=== PATIENT | male | born 1945 ===

== ENCOUNTER → 2019-12-27 14:03 | Outpatient (CLI) | payer MEDICARE, SELFPAY ==
--- NOTE | 2019-12-27 14:15 | DI.RAD.S_ITS ---
PROCEDURE: XR THORACIC SPINE 3V INDICATIONS: BACK PAIN TECHNIQUE: 3 views of the thoracic spine were acquired. COMPARISON: None. FINDINGS: Bones: No fractures or dislocations. No suspicious bony lesions. Mild degenerative disc disease, no fracture or subluxation found. pairs of ribs are noted, and appear intact where visualized. Soft tissues: No paravertebral stripe thickening. IMPRESSION: Only mild degenerative disc disease is seen. Dictated by: Abdiel Carver M.D. on 12/27/2019 at 15:19 Approved by: Abdiel Carver M.D. on 12/27/2019 at 15:20
== END ==
PROVIDERS: PCP Orthopaedic Surgery; Referring Provider Orthopaedic Surgery; Visit Provider Orthopaedic Surgery
DX: M54.9 Dorsalgia, unspecified (principal); M79.18 Myalgia, other site; M51.34 Other intervertebral disc degeneration, thoracic region
CPT/HCPCS: 72072

== ENCOUNTER 2020-06-04 12:13 | Emergency (ER) | payer MEDICARE, SELFPAY ==
[2020-06-04] VITALS (15 sets, daily range): BP systolic 124–169; BP diastolic 70–93; PULSE 74–88; RESP 17–25; TEMP 36.8; O2SAT 93–99; BMI 25.1
--- NOTE | 2020-06-04 12:38 | DI.RAD.S_ITS ---
PROCEDURE: XR CHEST 1V INDICATIONS: chest pain TECHNIQUE: One view of the chest was acquired. COMPARISON: None. FINDINGS: Surgical changes and devices: None. Lungs and pleura: Lungs are clear. No pleural effusions or pneumothorax. Mediastinum: Mediastinal contours appear normal. Heart size is normal. Bones and chest wall: No suspicious bony lesions. Overlying soft tissues appear unremarkable. IMPRESSION: Normal for age, source of current chest pain symptoms is not seen. Dictated by: Abdiel Carver M.D. on 06/04/2020 at 13:19 Approved by: Abdiel Carver M.D. on 06/04/2020 at 13:20
[2020-06-04 12:44] LABS: Add Manual Diff / Slide Review NO; Basophils Absolute Auto 0 /uL (0-100); Basophils Percent Auto 0.5 % (0-2); Eosinophils Absolute Auto 0 /uL (0-450); Eosinophils Percent Auto 0.4 % (2-4); Hematocrit 39.4 % (41-53); Hemoglobin 13.3 g/dL (13.5-17.5); Lymphocytes Absolute Auto 1700 /uL (1100-4500); Lymphocytes Percent Auto 22.2 % (25-40); Mean Corpuscular HGB Conc 33.8 % (30-36); Mean Corpuscular Hemoglobin 30.3 PG (26-34); Mean Corpuscular Volume 89.5 fL (80-100); Monocytes Absolute Auto 700 /uL (0-900); Monocytes Percent Auto 8.6 % (3-14); Neutrophils Absolute Auto 5300 /uL (1500-7000); Neutrophils Percent Auto 68.3 % (50-75); Platelet Count 308 X10^3/uL (150-400); Red Cell Distribution Width 13.7 % (11.6-14.8); White Blood Cell Count 7.8 X10^3/uL (4.5-11.0)
[2020-06-04 12:56] LABS: Prothrombin Time 12.1 SECONDS (10.1-12.7)
[2020-06-04 12:59] LABS: Alanine Aminotransferase 21 IU/L (<50); Albumin 4.3 g/dL (3.5-5.0); Albumin Globulin Ratio 1.4 (1.0-2.8); Alkaline Phosphatase 75 U/L (38-126); Aspartate Aminotransferase 24 IU/L (17-59); BUN Creatinine Ratio 16.1 (6-22); Bilirubin Total 0.5 mg/dL (0.2-1.3); Blood Urea Nitrogen 14 mg/dL (9-20); Calcium 9.2 mg/dL (8.4-10.2); Carbon Dioxide 26 mmol/L (22-32); Chloride 102 mmol/L (98-107); Creatine Kinase 164 U/L (55-170); Estimated Glomerular Filt Rate > 60.0 mL/min (>60); Globulin 3.1 g/dL (1.7-4.1); Glucose 155 mg/dL (80-110); HEMOLYSIS < 15 (0-50); Lipase 235 U/L (23-300); PTT Partial Thromboplastin Tim 29 SECONDS (26.4-36.2); Sodium 135 mmol/L (137-145); Total Protein 7.4 g/dL (6.3-8.2)
[2020-06-04 13:11] LABS: Troponin I < 0.012 ng/mL (0.01-0.034)
[2020-06-04 13:15] LABS: CKMB % Relative Index 1.5 % (1.5-5.0); Creatine Kinase MB 2.44 ng/mL (<2.37)
--- NOTE | 2020-06-04 13:22 | ED.CHESTPAIN ---
HPI - Chest Pain <RAFAEL Corcoran - Last Filed: 06/04/20 16:26> General Chief Complaint: Chest Pain Stated Complaint: Having Heart Issues, Palpitaions, Numbness in Hand Time Seen by Provider: 06/04/20 12:39 Source: patient Mode of arrival: Ambulatory Limitations: no limitations History of Present Illness HPI narrative: 74yo male with a history of palpitations (takes a beta pancho), presents to the ED for increased heart palpitations and the development of chest pressure. Patient states on 05/30 (6 days ago), he noticed he was short of breath while he was walking up the driveway, he also had increased heart palpitation where he feels leg every so often he has a double heart beat. Patient states at that point he noticed some 2/10 chest pressure and some ?abnormal feelings in his hands bilaterally. Patient states it is not quite and numbness and tingling but just does not feel right. Patient states the feelings have been ongoing. He saw his primary care provider approximately 2 days ago and was told that he will have a full workup scheduled, he was not told that this involved cardiac stress test. 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 Patient states he is usually quite active, he usually gets on the elliptical for 20 minutes, he was only able to do it for 5 minutes the past few days due to fatigue and shortness of breath. Patient denies any fevers, chills, cough, nausea, vomiting, diarrhea, dizziness, headaches, slurred speech, or any other concerns. Related Data Allergies Allergy/AdvReac Type Severity Reaction Status Date / Time Penicillins Allergy Verified 06/04/20 12:33 Sulfa (Sulfonamide Allergy Verified 06/04/20 12:33 Antibiotics) Review of Systems <RAFAEL Corcoran - Last Filed: 06/04/20 16:26> Review of Systems Narrative: REVIEW OF SYSTEMS: GENERAL: Denies fevers. HENT: No head trauma. CARDIOVASCULAR: Reports palpitations, see HPI. RESPIRATORY: No cough. GASTROINTESTINAL: No nausea or vomiting. MUSCULOSKELETAL: No weakness or injury. INTEGUMENTARY: No rash. Patient History <RAFAEL Corcoran - Last Filed: 06/04/20 16:26> Medical History HTN (hypertension) Social History Smoking Status: Never smoker Smoking Status: Never smoker alcohol intake frequency: a few times a week Alcohol type: wine Substance Use Type: does not use Exam <RAFAEL Corcoran - Last Filed: 06/04/20 16:26> Initial Vital Signs Initial Vital Signs: Vital Signs Temperature 98.2 F 06/04/20 12:34 Pulse Rate 88 06/04/20 12:34 Respiratory Rate 18 06/04/20 12:34 Blood Pressure 169/86 H 06/04/20 12:34 Pulse Oximetry 99 06/04/20 12:34 PHYSICAL EXAMINATION: GENERAL: Awake and alert. HENT: Normocephalic, atraumatic. Ear canals patent. Oral mucosa is pink and moist. EYES: Conjunctiva pink, sclera white, no periorbital swelling. CHEST: Normal to inspection and without deformities. CARDIOVASCULAR: S1 and S2 sounds normal. Regular rate and rhythm, no murmurs, clicks, or bruits. No pedal edema. Occasional PVCs seen on the monitor. RESPIRATORY: Normal respiratory rate, trachea midline, airway patent. No stridor, nasal flaring or accessory muscle use. Lungs are clear in all sellers without wheeze, rhonchi, or crackles. GASTROINTESTINAL: Bowel sounds normoactive. Abdomen is soft and non-tender. No organomegaly. MUSCULOSKELETAL: Normal gait and coordination. Equal tone and mass bilaterally. EXTREMITIES: CMS intact. Moves all extremities. SKIN: Warm, dry, soft, appropriate color for ethnicity. No lesions, rashes, or wounds. NEURO: Alert and Oriented X 3. Good coordination. No ataxia, or sensory deficits, or cognitive issues. PSYCH: Appropriate affect and mood. <Amelia Baptiste DO - Last Filed: 06/05/20 08:04> Initial Vital Signs Initial Vital Signs: Vital Signs Temperature 98.2 F 06/04/20 12:34 Pulse Rate 88 06/04/20 12:34 Respiratory Rate 18 06/04/20 12:34 Blood Pressure 169/86 H 06/04/20 12:34 Pulse Oximetry 99 06/04/20 12:34 Scores <RAFAEL Corcoran - Last Filed: 02/18/21 16:26> HEART Score Heart Score history: Slightly Suspicious Heart Score EKG: Normal Heart Score Age: > or = 65 years old Heart Score risk factors: 1-2 risk factors Heart Score troponin: < or = to normal limit Heart Score Total: 3 Course <Priscila EspinalRAFAEL - Last Filed: 06/04/20 16:26> Course Course Narrative: 1335: Patient states he feels different after the nitro but does not necessarily feel better or worse. 1436: Patient states he is feeling much better, denies any chest pressure. Repeat troponin and EKG ordered. 1546: Patient states he is feeling much better. Discussed indications for stress test and admission verses no patient follow-up with primary care provider. Patient states he would like to go home today. We discussed the importance of close follow-up as well as importance of returning for any new or worsening symptoms. Orders Ordered: Discontinued Medications Aspirin (Aspirin 81 Mg Chew Tab) 324 mg PO NOW ONE Stop: 06/04/20 13:01 Last Admin: 06/04/20 13:35 Dose: 324 mg Documented by: KEVON Sodium Chloride (Normal Saline 0.9%) 1,000 mls @ 1,000 mls/hr IV BOLUS ONE Stop: 06/04/20 15:35 Last Infusion: 06/04/20 15:46 Dose: 0 mls/hr Documented by: Admin: 06/04/20 14:37 Dose: 1,000 mls/hr Documented by: KEVON Nitroglycerin (Nitroglycerin 0.3 Mg Sl Tab) 0.3 mg SL NOW ONE Stop: 06/04/20 13:01 Last Admin: 06/04/20 13:31 Dose: Not Given Documented by: KEVON Nitroglycerin (Nitroglycerin 0.4 Mg Sl Tab) 0.4 mg SL [id number] PRN PRN Reason: Chest Pain Last Admin: 06/04/20 13:35 Dose: 0.4 mg Documented by: EKVON Consultations Consultation #1: Patient staffed with Dr. Baptiste discussed test, test results, plan of care. Vital Signs Vital signs: Vital Signs - 8 hr 06/04/20 12:34 06/04/20 12:52 06/04/20 13:00 Temperature 98.2 F Pulse Rate 88 86 82 Respiratory Rate 18 25 H 23 Blood Pressure 169/86 H Pulse Oximetry 99 97 96 06/04/20 13:30 06/04/20 13:35 06/04/20 13:38 Temperature Pulse Rate 78 76 81 Respiratory Rate 17 21 Blood Pressure 169/86 H 153/93 H Pulse Oximetry 95 96 06/04/20 13:40 06/04/20 13:50 06/04/20 14:00 Temperature Pulse Rate 84 83 78 Respiratory Rate 22 19 17 Blood Pressure 144/77 H 136/74 133/73 Pulse Oximetry 97 93 95 06/04/20 14:10 06/04/20 14:20 06/04/20 14:30 Temperature Pulse Rate 75 77 74 Respiratory Rate 22 25 H 21 Blood Pressure 125/74 124/70 130/75 Pulse Oximetry 95 96 95 06/04/20 14:40 06/04/20 14:50 06/04/20 15:00 Temperature Pulse Rate 75 79 78 Respiratory Rate 21 23 22 Blood Pressure 132/77 129/84 132/84 Pulse Oximetry 97 96 98 <Amelia Baptiste DO - Last Filed: 06/05/20 08:04> Orders Ordered: Discontinued Medications Aspirin (Aspirin 81 Mg Chew Tab) 324 mg PO NOW ONE Stop: 06/04/20 13:01 Last Admin: 06/04/20 13:35 Dose: 324 mg Documented by: KEVON Sodium Chloride (Normal Saline 0.9%) 1,000 mls @ 1,000 mls/hr IV BOLUS ONE Stop: 06/04/20 15:35 Last Infusion: 06/04/20 15:46 Dose: 0 mls/hr Documented by: Admin: 06/04/20 14:37 Dose: 1,000 mls/hr Documented by: KEVON Nitroglycerin (Nitroglycerin 0.3 Mg Sl Tab) 0.3 mg SL NOW ONE Stop: 06/04/20 13:01 Last Admin: 06/04/20 13:31 Dose: Not Given Documented by: KEVON Nitroglycerin (Nitroglycerin 0.4 Mg Sl Tab) 0.4 mg SL [id number] PRN PRN Reason: Chest Pain Last Admin: 06/04/20 13:35 Dose: 0.4 mg Documented by: KEVON Vital Signs Vital signs: Vital Signs - 8 hr 06/04/20 12:34 06/04/20 12:52 06/04/20 13:00 Temperature 98.2 F Pulse Rate 88 86 82 Respiratory Rate 18 25 H 23 Blood Pressure 169/86 H Pulse Oximetry 99 97 96 06/04/20 13:30 06/04/20 13:35 06/04/20 13:38 Temperature Pulse Rate 78 76 81 Respiratory Rate 17 21 Blood Pressure 169/86 H 153/93 H Pulse Oximetry 95 96 06/04/20 13:40 06/04/20 13:50 06/04/20 14:00 Temperature Pulse Rate 84 83 78 Respiratory Rate 22 19 17 Blood Pressure 144/77 H 136/74 133/73 Pulse Oximetry 97 93 95 06/04/20 14:10 06/04/20 14:20 06/04/20 14:30 Temperature Pulse Rate 75 77 74 Respiratory Rate 22 25 H 21 Blood Pressure 125/74 124/70 130/75 Pulse Oximetry 95 96 95 06/04/20 14:40 06/04/20 14:50 06/04/20 15:00 Temperature Pulse Rate 75 79 78 Respiratory Rate 21 23 22 Blood Pressure 132/77 129/84 132/84 Pulse Oximetry 97 96 98 MDM - Chest Pain <RAFAEL Corcoran - Last Filed: 06/04/20 16:26> Medical Records Data Attestation: I reviewed the patient's medical records. Lab Data Attestation: I reviewed the patient's lab results. Result diagrams: 06/04/20 12:35 06/04/20 12:35 Labs: Lab Results 06/04/20 06/04/20 06/04/20 Range/Units 12:35 12:35 12:35 WBC 7.8 (4.5-11.0) X10^3/uL RBC 4.40 L (4.5-5.9) X10^6/uL Hgb 13.3 L (13.5-17.5) g/dL Hct 39.4 L (41-53) % MCV 89.5 (80-100) fL MCH 30.3 (26-34) PG MCHC 33.8 (30-36) % RDW 13.7 (11.6-14.8) % Plt Count 308 (150-400) X10^3/uL Neut % (Auto) 68.3 (50-75) % Lymph % (Auto) 22.2 L (25-40) % Sutter % (Auto) 8.6 (3-14) % Eos % (Auto) 0.4 L (2-4) % Baso % (Auto) 0.5 (0-2) % Neut # (Auto) 5300 (7071-4002) /uL Lymph # (Auto) 1700 (1561-4743) /uL Sutter # (Auto) 700 (0-900) /uL Eos # (Auto) 0 (0-450) /uL Baso # (Auto) 0 (0-100) /uL PT 12.1 (10.1-12.7) SECONDS INR 1.0 (0.9-1.3) APTT 29 (26.4-36.2) SECONDS Sodium 135 L (137-145) mmol/L Potassium 4.0 (3.4-5.1) mmol/L Chloride 102 (98-107) mmol/L Carbon Dioxide 26 (22-32) mmol/L BUN 14 (9-20) mg/dL Creatinine 0.87 (0.66-1.25) mg/dL Estimated GFR > 60.0 (>60) mL/min BUN/Creatinine Ratio 16.1 (6-22) Glucose 155 H (80-110) mg/dL Calcium 9.2 (8.4-10.2) mg/dL Total Bilirubin 0.5 (0.2-1.3) mg/dL AST 24 (17-59) IU/L ALT 21 (<50) IU/L Alkaline Phosphatase 75 (38-126) U/L Total Creatine Kinase 164 (55-170) U/L CK-MB (CK-2) 2.44 H (<2.37) ng/mL CK-MB (CK-2) Rel Index 1.5 (1.5-5.0) % Troponin I < 0.012 (0.01-0.034) ng/mL Total Protein 7.4 (6.3-8.2) g/dL Albumin 4.3 (3.5-5.0) g/dL Globulin 3.1 (1.7-4.1) g/dL Albumin/Globulin Ratio 1.4 (1.0-2.8) Lipase 235 (23-300) U/L 02/18/21 Range/Units 14:39 WBC (4.5-11.0) X10^3/uL RBC (4.5-5.9) X10^6/uL Hgb (13.5-17.5) g/dL Hct (41-53) % MCV (80-100) fL MCH (26-34) PG MCHC (30-36) % RDW (11.6-14.8) % Plt Count (150-400) X10^3/uL Neut % (Auto) (50-75) % Lymph % (Auto) (25-40) % Sutter % (Auto) (3-14) % Eos % (Auto) (2-4) % Baso % (Auto) (0-2) % Neut # (Auto) (4490-3112) /uL Lymph # (Auto) (0527-9078) /uL Sutter # (Auto) (0-900) /uL Eos # (Auto) (0-450) /uL Baso # (Auto) (0-100) /uL PT (10.1-12.7) SECONDS INR (0.9-1.3) APTT (26.4-36.2) SECONDS Sodium (137-145) mmol/L Potassium (3.4-5.1) mmol/L Chloride (98-107) mmol/L Carbon Dioxide (22-32) mmol/L BUN (9-20) mg/dL Creatinine (0.66-1.25) mg/dL Estimated GFR (>60) mL/min BUN/Creatinine Ratio (6-22) Glucose (80-110) mg/dL Calcium (8.4-10.2) mg/dL Total Bilirubin (0.2-1.3) mg/dL AST (17-59) IU/L ALT (<50) IU/L Alkaline Phosphatase (38-126) U/L Total Creatine Kinase (55-170) U/L CK-MB (CK-2) (<2.37) ng/mL CK-MB (CK-2) Rel Index (1.5-5.0) % Troponin I < 0.012 (0.01-0.034) ng/mL Total Protein (6.3-8.2) g/dL Albumin (3.5-5.0) g/dL Globulin (1.7-4.1) g/dL Albumin/Globulin Ratio (1.0-2.8) Lipase (23-300) U/L Imaging Data Chest x-ray: Radiologist's Impression: [address] [id number] ReportSigned Patient: Juanpablo Vo RMR#: [id number]: 6Acct:[id number]/Sex: 74 / MDate of Service: 06/04/20Loc: EDAccession Number: [id number] Procedure: XR chest 1V Ordering Provider: Amelia Baptiste D.O. PROCEDURE: XR CHEST 1V INDICATIONS: chest pain TECHNIQUE: One view of the chest was acquired. COMPARISON: None. FINDINGS: Surgical changes and devices: None. Lungs and pleura: Lungs are clear. No pleural effusions or pneumothorax. Mediastinum: Mediastinal contours appear normal. Heart size is normal. Bones and chest wall: No suspicious bony lesions. Overlying soft tissues appear unremarkable. IMPRESSION: Normal for age, source of current chest pain symptoms is not seen. Dictated by: Abdiel Carver M.D. on 06/04/2020 at 13:19 Approved by: Adbiel Carver M.D. on 06/04/2020 at 13:20 ECG Data Interpretation: 1229: Normal sinus rhythm, rate 85, KS interval 160, QTC 440. No ST elevation or ST depression. T-wave inversion noted in V1. No ectopy. EKG also viewed by Dr. Baptiste. 1455: Sinus rhythm, rate 75, KS interval 163, QTC 408. No ST elevation or ST depression. T-wave inverson noted in V1. No ectopy, EKG also viewed by Dr. Baptiste per protocol. [facility] Narrative Medical decision making narrative: 74-year-old male presents to the emergency department for complaints of increased palpitations over the past week with mild chest pressure and shortness of breath when walking up the driveway. Patient has a heart score 3. Serial troponins were negative, EKG did not show any a diffuse ischemic changes. We discussed given his risk factors, he should have a cardiac stress test and echo to further evaluate for ACS. We discussed that this can be done via admission or outpatient as a heart score 3 can be either admitted or discharged. Patient felt better after evaluation emergency department did not have any chest pain, shortness of breath, or palpitations. Shared decision making was used to the lab patient to be discharged. We discussed the significance importance of calling his primary care provider sedated tomorrow to discuss stress testing and ECHO indications. We discussed risks and benefits about going home, patient was significantly counseled about returns emergency department for any new or worsening symptoms. EKG within normal limits, there was occasional PVCs noted on the monitor however, they were not consistent with his frequent palpitations that he was initially feeling. Nitroglycerin did not affect patient's symptoms. I suspect there may be a component of anxiety with this as well. Patient is currently on metoprolol for his palpitations which he has a history of. He recently seen his PCP yesterday. No concern for infection. No concern for PE given lack of tachycardia or hypoxia, symptoms resolved while in the emergency department, it appears main complaint is most likely palpitations. Return precautions given for new or worsening symptoms. Patient agreed to plan of care verbalized understanding. <Amelia Baptiste, DO - Last Filed: 06/05/20 08:04> Lab Data Labs: Lab Results 06/04/20 06/04/20 06/04/20 Range/Units 12:35 12:35 12:35 WBC 7.8 (4.5-11.0) X10^3/uL RBC 4.40 L (4.5-5.9) X10^6/uL Hgb 13.3 L (13.5-17.5) g/dL Hct 39.4 L (41-53) % MCV 89.5 (80-100) fL MCH 30.3 (26-34) PG MCHC 33.8 (30-36) % RDW 13.7 (11.6-14.8) % Plt Count 308 (150-400) X10^3/uL Neut % (Auto) 68.3 (50-75) % Lymph % (Auto) 22.2 L (25-40) % Sutter % (Auto) 8.6 (3-14) % Eos % (Auto) 0.4 L (2-4) % Baso % (Auto) 0.5 (0-2) % Neut # (Auto) 5300 (1991-6815) /uL Lymph # (Auto) 1700 (3584-5719) /uL Sutter # (Auto) 700 (0-900) /uL Eos # (Auto) 0 (0-450) /uL Baso # (Auto) 0 (0-100) /uL PT 12.1 (10.1-12.7) SECONDS INR 1.0 (0.9-1.3) APTT 29 (26.4-36.2) SECONDS Sodium 135 L (137-145) mmol/L Potassium 4.0 (3.4-5.1) mmol/L Chloride 102 (98-107) mmol/L Carbon Dioxide 26 (22-32) mmol/L BUN 14 (9-20) mg/dL Creatinine 0.87 (0.66-1.25) mg/dL Estimated GFR > 60.0 (>60) mL/min BUN/Creatinine Ratio 16.1 (6-22) Glucose 155 H (80-110) mg/dL Calcium 9.2 (8.4-10.2) mg/dL Total Bilirubin 0.5 (0.2-1.3) mg/dL AST 24 (17-59) IU/L ALT 21 (<50) IU/L Alkaline Phosphatase 75 (38-126) U/L Total Creatine Kinase 164 (55-170) U/L CK-MB (CK-2) 2.44 H (<2.37) ng/mL CK-MB (CK-2) Rel Index 1.5 (1.5-5.0) % Troponin I < 0.012 (0.01-0.034) ng/mL Total Protein 7.4 (6.3-8.2) g/dL Albumin 4.3 (3.5-5.0) g/dL Globulin 3.1 (1.7-4.1) g/dL Albumin/Globulin Ratio 1.4 (1.0-2.8) Lipase 235 (23-300) U/L 06/04/20 Range/Units 14:39 WBC (4.5-11.0) X10^3/uL RBC (4.5-5.9) X10^6/uL Hgb (13.5-17.5) g/dL Hct (41-53) % MCV (80-100) fL MCH (26-34) PG MCHC (30-36) % RDW (11.6-14.8) % Plt Count (150-400) X10^3/uL Neut % (Auto) (50-75) % Lymph % (Auto) (25-40) % Sutter % (Auto) (3-14) % Eos % (Auto) (2-4) % Baso % (Auto) (0-2) % Neut # (Auto) (1491-9676) /uL Lymph # (Auto) (0115-5611) /uL Sutter # (Auto) (0-900) /uL Eos # (Auto) (0-450) /uL Baso # (Auto) (0-100) /uL PT (10.1-12.7) SECONDS INR (0.9-1.3) APTT (26.4-36.2) SECONDS Sodium (137-145) mmol/L Potassium (3.4-5.1) mmol/L Chloride (98-107) mmol/L Carbon Dioxide (22-32) mmol/L BUN (9-20) mg/dL Creatinine (0.66-1.25) mg/dL Estimated GFR (>60) mL/min BUN/Creatinine Ratio (6-22) Glucose (80-110) mg/dL Calcium (8.4-10.2) mg/dL Total Bilirubin (0.2-1.3) mg/dL AST (17-59) IU/L ALT (<50) IU/L Alkaline Phosphatase (38-126) U/L Total Creatine Kinase (55-170) U/L CK-MB (CK-2) (<2.37) ng/mL CK-MB (CK-2) Rel Index (1.5-5.0) % Troponin I < 0.012 (0.01-0.034) ng/mL Total Protein (6.3-8.2) g/dL Albumin (3.5-5.0) g/dL Globulin (1.7-4.1) g/dL Albumin/Globulin Ratio (1.0-2.8) Lipase (23-300) U/L Discharge Plan Departure Patient Disposition: Home Clinical Impression: Heart palpitations Chest pain Qualifiers: Chest pain type: unspecified Qualified Code(s): R07.9 - Chest pain, unspecified Instructions: DI for Chest Pain Activity Restrictions/Additional Instructions: Thank you for entrusting me with your care today. As discussed, your laboratory work, serial EKGs, and chest x-ray are non-remarkable. We discussed admission versus discharge today, I do recommend following up with your primary care provider. Please give them a call today or tomorrow to discuss the indications for stress test. Let them know that you have been seen in the emergency department for chest pain and palpitations. Return emergency department for any new or worsening symptoms especially chest pain, shortness of breath, syncope, or any other concerns. Referrals: Aaron Parsons MD [Primary Care Provider] - <Amelia Baptiste DO - Last Filed: 06/05/20 08:04> Cosign ED Attending Nas[place]ure Attestation: I was immediately available in the department for consultation. Documentation has been reviewed. I agree with assessment and plan.
[2020-06-04] MEDS: NITROGLYCERIN 0.4 MG SL TAB SL (13:35)
[2020-06-04] MEDS: ASPIRIN 81 MG CHEW TAB 324 MG PO (13:35)
[2020-06-04] MEDS: SODIUM CHLORIDE 0.9% 1,000 ML 1000 ML IV (14:37)
[2020-06-04 15:14] LABS: Troponin I < 0.012 ng/mL (0.01-0.034)
== END 2020-06-04 15:46 | disposition home or self-care (01) ==
PROVIDERS: Emergency Medicine; Emergency Provider Nurse Practitioner; PCP Orthopaedic Surgery
DX: R00.2 Palpitations (principal); R07.9 Chest pain, unspecified; R06.02 Shortness of breath
CPT/HCPCS: 36415; 71045; 80053; 82550; 82553; 83690; 84484; 85025; 85610; 85730; 93005; 93010; 96360; 99281; 99284

== ENCOUNTER → 2020-08-31 07:16 | Outpatient (CLI) | payer MEDICARE, SELFPAY ==
[2020-08-31 08:36] LABS: Add Manual Diff / Slide Review NO; Basophils Absolute Auto 100 /uL (0-100); Eosinophils Absolute Auto 100 /uL (0-450); Eosinophils Percent Auto 2.3 % (2-4); Hematocrit 40.7 % (41-53); Hemoglobin 13.6 g/dL (13.5-17.5); Lymphocytes Absolute Auto 1900 /uL (1100-4500); Lymphocytes Percent Auto 31.4 % (25-40); Mean Corpuscular HGB Conc 33.4 % (30-36); Mean Corpuscular Hemoglobin 29.5 PG (26-34); Mean Corpuscular Volume 88.2 fL (80-100); Monocytes Absolute Auto 500 /uL (0-900); Monocytes Percent Auto 8.8 % (3-14); Neutrophils Absolute Auto 3400 /uL (1500-7000); Neutrophils Percent Auto 56.5 % (50-75); Platelet Count 277 X10^3/uL (150-400); Red Blood Cell Count 4.61 X10^6/uL (4.5-5.9); Red Cell Distribution Width 13.7 % (11.6-14.8)
[2020-08-31 08:49] LABS: Hemoglobin A1C% w Est Avg Glu 7.6 % (4.0-6.0)
[2020-08-31 08:51] LABS: Alanine Aminotransferase 29 IU/L (<50); Albumin 3.9 g/dL (3.5-5.0); Albumin Globulin Ratio 1.3 (1.0-2.8); Alkaline Phosphatase 63 U/L (38-126); Aspartate Aminotransferase 29 IU/L (17-59); BUN Creatinine Ratio 21.1 (6-22); Bilirubin Total 0.2 mg/dL (0.2-1.3); Blood Urea Nitrogen 19 mg/dL (9-20); Carbon Dioxide 27 mmol/L (22-32); Chloride 103 mmol/L (98-107); Cholesterol 134 mg/dL (140-199); Estimated Glomerular Filt Rate > 60.0 mL/min (>60); Glucose 126 mg/dL (80-110); HDL Cholesterol 54 mg/dL (40-60); HEMOLYSIS < 15 (0-50); LDL Cholesterol Calculated 64 mg/dL (<100); Potassium 4.1 mmol/L (3.4-5.1); Sodium 136 mmol/L (137-145); Total Protein 6.9 g/dL (6.3-8.2); Triglycerides 82 mg/dL (35-150)
[2020-08-31 09:21] LABS: Prostate Specific Antigen Scrn < 0.064 ng/mL (0.1-4.0)
[2020-08-31 09:24] LABS: Creatinine Urine Random 131.1 mg/dL
[2020-08-31 09:50] LABS: TSH w/ Reflex to FT4 2.05 uIU/mL (0.47-4.68)
== END ==
PROVIDERS: PCP Family Medicine; Referring Provider Family Medicine; Visit Provider Family Medicine
DX: C61 Malignant neoplasm of prostate (principal); E11.9 Type 2 diabetes mellitus without complications; Z12.5 Encounter for screening for malignant neoplasm of prostate; R00.2 Palpitations; E03.9 Hypothyroidism, unspecified; E78.5 Hyperlipidemia, unspecified; R07.89 Other chest pain
CPT/HCPCS: 36415; 80053; 80061; 82043; 82570; 83036; 84443; 85025; G0103

== ENCOUNTER → 2020-11-19 09:01 | Outpatient (CLI) | payer MEDICARE, SELFPAY ==
[2020-11-19 11:12] LABS: COVID19 -Nasal RAPID Negative (Negative)
== END ==
PROVIDERS: PCP Family Medicine; Visit Provider Specialist
DX: Z20.822 Contact with and (suspected) exposure to COVID-19 (principal)
CPT/HCPCS: 87635; C9803

== ENCOUNTER 2020-11-20 07:30 | Day surgery (SDC) | payer MEDICARE, SELFPAY ==
[2020-11-20 07:52] VITALS: BMI 25.1
[2020-11-20 08:03] VITALS: BP 159/90; PULSE 92; RESP 16; TEMP 37.2; O2SAT 98
[2020-11-20] MEDS: LACTATED RINGERS 1,000 ML 200 ML IV (08:06)
--- NOTE | 2020-11-20 08:28 | PM.HP.1 ---
History of Present Illness History of Present Illness Chief [place] [facility] [place]: The patient is a gentleman his last colonoscopy was over 15 years ago. He is here for screening exam. His grandmother had colon cancer. He has never had any polyps is not seen any blood Patient History Medical History Allergies Chest discomfort Chicken pox (~1951) Diabetes mellitus Fractures Gout Graves disease (~1987) History of elevated PSA (~2003) HTN (hypertension) Hyperlipidemia Hypertension Hypothyroidism (~1987) Measles (~1952) Mumps (~1951) Palpitations Prostate cancer (~2003) Tinnitus (~1986) Surgical History Anesthesia History of prostatectomy (~2003) History of thyroidectomy (~2000) Tibia/fibula fracture (~11/1969) Family & Social History Family History Father History of heart disease Mother C. difficile colitis Grandmother Cancer Grandfather History of heart disease Grandmother History of heart disease Social History: household members spouse Tobacco & Substance use: Smoking Status Never smoker alcohol intake current alcohol intake frequency a few times a month Substance Use Type does not use Meds Home Medications and Allergies Home Medications Medication Instructions Recorded Confirmed Type aspirin 81 mg tablet,delayed 81 mg PO DAILY 08/21/20 11/20/20 History release (Adult Low Dose Aspirin) lancets #100 ea 08/21/20 09/09/20 History levothyroxine 125 mcg capsule 125 mcg PO DAILY 08/21/20 11/20/20 History metformin 1,000 mg tablet 1,000 mg PO BID 08/21/20 11/20/20 History metoprolol succinate 25 mg 25 mg PO DAILY 08/21/20 11/20/20 History tablet,extended release 24 hr rosuvastatin 20 mg tablet 20 mg PO DAILY 08/21/20 11/20/20 History lisinopril 30 mg tablet 30 mg PO DAILY #90 tab 09/09/20 11/20/20 Rx insulin glargine 100 30 unit SUBCUT QAM 11/20/20 11/20/20 History unit-lixisenatide 33 mcg/mL subcutaneous pen (Soliqua 100/33) Allergies Allergy/AdvReac Type Severity Reaction Status Date / Time melon Allergy Anaphylaxis Verified 11/20/20 07:48 Penicillins Allergy Rash Verified 11/20/20 07:48 Sulfa (Sulfonamide Allergy Rash Verified 11/20/20 07:48 Antibiotics) Review of Systems Review of Systems Narrative: No cough cold or asthma. No heart problems or chest pain. No black or bloody bowel movements. No seizures or blackouts. Exam Vital Signs (past 8 hours): - 11/20/20 08:03 Temperature 98.9 F Pulse Rate 92 H Respiratory Rate 16 Blood Pressure 159/90 H Pulse Oximetry 98 Oxygen Delivery Method Room Air Narrative Exam Narrative: Pleasant cooperative patient no apparent distress. Lungs are clear to auscultation. No rales or rhonchi. Heart regular rate and rhythm no murmur gallop. Abdomen is soft nontender without mass. No obvious hernias. Patient is alert and oriented x3. Assessment & Plan Assessment and plan (1) Screening for colon cancer: Status: Acute Assessment & Plan narrative: I have discussed the procedure and the rationale with the patient including risks of bleeding, perforation which would necessitate a major operation, failure to find remove all lesions and the potential to tattoo. They appeared to understand and wished to proceed.
--- NOTE | 2020-11-20 08:35 | PM.PREOP ---
Pre-operative Note COVID-19 COVID-19 status: Negative Result date/Date tested (Pos, Neg/Pending): 11/19/20 Interval Note History & Physical reviewed/Exam performed by Physician: Yes Changes to H&P: No ASA Class (for procedural sedation): III
[2020-11-20] MEDS: MIDAZOLAM 5 MG/5 ML VIAL IV (08:50)
[2020-11-20] MEDS: fentaNYL 250 MCG/5 ML INJ IV (08:50)
[2020-11-20 09:00] VITALS: BP 125/75; PULSE 85; RESP 16; TEMP 37.2; O2SAT 94
[2020-11-20 09:05] VITALS: BP 127/72; PULSE 86; RESP 20; O2SAT 94
[2020-11-20 09:10] VITALS: BP 136/71; PULSE 87; RESP 14; O2SAT 95
--- NOTE | 2020-11-20 09:10 | PM.OP.ENDO ---
Operative Date/Time/Diagnoses Date of procedure: 11/20/20 Time of procedure: 09:10 Pre-op diagnosis: Screening for colon cancer. Last exam about 15 years ago. Post-op diagnosis: same Procedure & Clinicians Study performed: Colonoscopy Same procedure as scheduled: Yes Indications: Screening Surgeon: Yoni Easley Procedure Notes SCOAP/Timeout: Performed Procedure in detail: The patient was placed in the left lateral decubitus position and underwent IV sedation directed by the surgeon consisting of fentanyl and Versed. Digital exam was unremarkable. I did not feel is prostate well.. The scope was inserted and advanced through the rectum into the sigmoid, descending, transverse, and ascending colon. Sigmoid diverticulosis was noted.. The cecum was reached identified by the ileocecal valve and the appendiceal opening. . The scope was gradually brought out. No Polyps were found. The scope ultimately was retroflexed in the rectum. The appearance was normal. The scope was removed and the patient tolerated the procedure well. Prep was good. Scope withdrawal time: 7 minutes Sedation minutes: 22 Findings: diverticulosis (Sigmoid) Specimen(s): none sent Complications: none Post-procedure Recommendations: Colonscopy in 10 years (If in good health)
[2020-11-20 09:15] VITALS: BP 133/76; PULSE 83; RESP 16; TEMP 36.7; O2SAT 94
[2020-11-20 09:20] VITALS: BP 139/77; PULSE 87; RESP 12; TEMP 36.6; O2SAT 95
== END 2020-11-20 09:30 | disposition home or self-care (01) ==
PROVIDERS: PCP Family Medicine; Referring Provider Specialist; Visit Provider Specialist
PROC: 0DJD8ZZ Inspection of Lower Intestinal Tract, Via Natural or Artificial Opening Endoscopic (ICD-10-PCS; CPT 45378; principal; 2020-11-20 08:30)
DX: Z12.11 Encounter for screening for malignant neoplasm of colon (principal); K57.30 Diverticulosis of large intestine without perforation or abscess without bleeding
CPT/HCPCS: G0121; 99152; J2250; J3010

== ENCOUNTER → 2020-11-22 11:58 | Outpatient (CLI) | payer MEDICARE, SELFPAY ==
[2020-11-22 12:53] LABS: COVID19 -Nasal RAPID Negative (Negative)
== END ==
PROVIDERS: PCP Family Medicine; Visit Provider Nurse Practitioner
DX: J02.9 Acute pharyngitis, unspecified (principal); R05 Cough; R09.81 Nasal congestion; Z20.822 Contact with and (suspected) exposure to COVID-19
CPT/HCPCS: 87635

== ENCOUNTER 2020-12-25 12:47 | Emergency (ER) | payer MEDICARE, SELFPAY ==
[2020-12-25] VITALS (8 sets, daily range): BP systolic 161–205; BP diastolic 83–105; PULSE 72–84; RESP 16–29; TEMP 37.1; O2SAT 95–98
--- NOTE | 2020-12-25 12:58 | DI.RAD.S_ITS ---
PROCEDURE: XR CHEST 1V INDICATIONS: chest pain TECHNIQUE: One view of the chest was acquired. COMPARISON: [facility], CR, XR CHEST 1V, 06/04/2020, 13:02. FINDINGS: Surgical changes and devices: None. Lungs and pleura: Lungs are clear. No pleural effusions or pneumothorax. Unchanged right hemidiaphragm elevation. Mediastinum: Mediastinal contours appear normal. Heart size is enlarged. Bones and chest wall: No suspicious bony lesions. Overlying soft tissues appear unremarkable. IMPRESSION: No acute pulmonary process. Dictated by: Marina Gonzalez M.D. on 12/25/2020 at 13:16 Approved by: Marina Gonzalez M.D. on 12/25/2020 at 13:16
[2020-12-25 13:10] LABS: Add Manual Diff / Slide Review NO; Basophils Absolute Auto 0 /uL (0-100); Basophils Percent Auto 0.4 % (0-2); Eosinophils Absolute Auto 300 /uL (0-450); Eosinophils Percent Auto 3.9 % (2-4); Hemoglobin 14.3 g/dL (13.5-17.5); Lymphocytes Absolute Auto 2600 /uL (1100-4500); Lymphocytes Percent Auto 29.9 % (25-40); Mean Corpuscular HGB Conc 33.3 % (30-36); Mean Corpuscular Hemoglobin 29.9 PG (26-34); Monocytes Absolute Auto 700 /uL (0-900); Monocytes Percent Auto 7.8 % (3-14); Neutrophils Absolute Auto 5100 /uL (1500-7000); Platelet Count 299 X10^3/uL (150-400); Red Blood Cell Count 4.78 X10^6/uL (4.5-5.9); Red Cell Distribution Width 15.3 % (11.6-14.8); White Blood Cell Count 8.8 X10^3/uL (4.5-11.0)
[2020-12-25 13:24] LABS: Alanine Aminotransferase 24 IU/L (<50); Albumin 4.4 g/dL (3.5-5.0); Albumin Globulin Ratio 1.5 (1.0-2.8); Alkaline Phosphatase 64 U/L (38-126); Aspartate Aminotransferase 33 IU/L (17-59); BUN Creatinine Ratio 17.5 (6-22); Bilirubin Total 0.5 mg/dL (0.2-1.3); Blood Urea Nitrogen 14 mg/dL (9-20); Calcium 9.2 mg/dL (8.4-10.2); Carbon Dioxide 23 mmol/L (22-32); Chloride 105 mmol/L (98-107); Creatine Kinase 120 U/L (55-170); Estimated Glomerular Filt Rate > 60.0 mL/min (>60); Glucose 116 mg/dL (80-110); HEMOLYSIS 27 (0-50); Lipase 154 U/L (23-300); Magnesium 1.8 mg/dL (1.6-2.3); Sodium 136 mmol/L (137-145); Total Protein 7.4 g/dL (6.3-8.2)
[2020-12-25 13:35] LABS: Troponin I < 0.012 ng/mL (0.01-0.034)
[2020-12-25 13:39] LABS: CKMB % Relative Index 1.9 % (1.5-5.0)
--- NOTE | 2020-12-25 13:47 | ED.ARRPALP ---
HPI - Arrhythmia/Palpitations General Chief Complaint: Arrhythmia/Palpitations Stated Complaint: Heart Issues, Flutters, Pressure,Weakness Time Seen by Provider: 12/25/20 13:29 Source: patient Mode of arrival: Ambulatory Limitations: no limitations History of Present Illness HPI narrative: Patient is a 75-year-old male. History of ?prediabetes and hypertension. He states that approximately 10 years ago he had episodes of palpitations. He did wear a Holter monitor but does not remember anything specific coming from that. He was started on metoprolol. Has been on metoprolol on a daily basis since that time. Has not had any specific issues until a couple weeks ago where he started to have episodes of palpitations and they became more prevalent over the past 2-3 days. He has no chest pain with them. Does become somewhat lightheaded when it happens. It does happen multiple times a day. He has not passed out. States the symptoms last several minutes when they do come on. His last episode was this morning. Has had no change to his medications recently. He is also feeling very shaky and also having weakness. Related Data Home Medications Medication Instructions Recorded Confirmed aspirin 81 mg tablet,delayed 81 mg PO DAILY 08/21/20 11/22/20 release (Adult Low Dose Aspirin) lancets #100 ea 08/21/20 11/22/20 levothyroxine 125 mcg capsule 125 mcg PO DAILY 08/21/20 11/22/20 metformin 1,000 mg tablet 1,000 mg PO BID 08/21/20 11/22/20 metoprolol succinate 25 mg 25 mg PO DAILY 08/21/20 11/22/20 tablet,extended release 24 hr rosuvastatin 20 mg tablet 20 mg PO DAILY 08/21/20 11/22/20 insulin glargine 100 30 unit SUBCUT QAM 11/20/20 11/22/20 unit-lixisenatide 33 mcg/mL subcutaneous pen (Soliqua 100/33) Previous Rx's Medication Instructions Recorded lisinopril 30 mg tablet 30 mg PO DAILY #90 tab 09/09/20 albuterol sulfate 90 mcg/actuation 2 puff INHALATION Q4-6H PRN #6.7 g 11/22/20 aerosol inhaler benzonatate 100 mg capsule 100 mg PO BID-TID PRN #20 cap 11/22/20 (Jaime Arenas) inhalational spacing device (Nabil #1 ea 11/22/20 Aerosol [place] Enhancer) Allergies Allergy/AdvReac Type Severity Reaction Status Date / Time melon Allergy Anaphylaxis Verified 12/25/20 12:57 Penicillins Allergy Rash Verified 12/25/20 12:57 Sulfa (Sulfonamide Allergy Rash Verified 12/25/20 12:57 Antibiotics) Review of Systems Constitutional Constitutional: Denies fever(s) and Denies headache(s) ENT Ears, Nose, Mouth, and Throat: Denies headache(s) Cardiovascular Cardiovascular: Reports as per HPI Respiratory Respiratory: Reports as per HPI Gastrointestinal Gastrointestinal: Reports system reviewed and no additional complaints, except as documented Genitourinary Genitourinary: Reports system reviewed and no additional complaints, except as documented Musculoskeletal Musculoskeletal: Reports system reviewed and no additional complaints, except as documented Integumentary/Breasts Skin/Breast: Reports system reviewed and no additional complaints, except as documented Neurologic Neurologic: Denies headache(s) Endocrine Endocrine: Reports system reviewed and no additional complaints, except as documented Hematologic/Lymphatic On Anticoagulants: No Allergic/Immunologic Allergic/Immunologic: Reports system reviewed and no additional complaints, except as documented Patient History Medical History Allergies Chest discomfort Chicken pox (~1951) Diabetes mellitus Fractures Gout Graves disease (~1987) History of elevated PSA (~2003) HTN (hypertension) Hyperlipidemia Hypertension Hypothyroidism (~1987) Measles (~1952) Mumps (~1951) Palpitations Prostate cancer (~2003) Tinnitus (~1986) Surgical History Anesthesia History of prostatectomy (~2003) History of thyroidectomy (~2000) Tibia/fibula fracture (~11/1969) Family History Father History of heart disease Mother C. difficile colitis Grandmother Cancer Grandfather History of heart disease Grandmother History of heart disease Social History household members: spouse Smoking Status: Never smoker alcohol intake: current Smoking Status: Never smoker alcohol intake frequency: a few times a month Alcohol type: wine Substance Use Type: does not use Exam Initial Vital Signs Initial Vital Signs: Vital Signs Temperature 98.8 F 12/25/20 12:50 Pulse Rate 82 12/25/20 12:50 Respiratory Rate 16 12/25/20 12:50 Blood Pressure 191/93 H 12/25/20 12:50 Pulse Oximetry 98 12/25/20 12:50 Const General: cooperative, comfortable and well developed [facility] Head: normal to inspection and normocephalic Eyes General: appearance normal, both eyes and all related structures Pupils: PERRL Resp Effort & Inspection: normal respiratory effort Auscultation: clear to auscultation bilaterally Cardio Rate: regular rate Rhythm: regular rhythm GI Inspection: normal to inspection Palpation: soft Skin General: no rashes or lesions noted Neuro General: patient alert, patient awake, patient oriented x3 and moves all extremities Extrem General: normal to inspection and capillary refill normal Psych Appearance: grossly normal and well kempt Course Orders Ordered: ED Orders 12/25/20 12:58 XR chest 1V Stat EKG-12 Lead Stat 12/25/20 13:00 Complete Blood Count AUTO DIFF Stat Comprehensive Metabolic Panel Stat Lipase Stat Magnesium Stat TSH w/ Reflex to FT4 Stat Troponin & CK Cardiac Panel Stat Vital Signs Vital signs: Vital Signs - 8 hr 12/25/20 12:50 12/25/20 12:53 12/25/20 12:54 Temperature 98.8 F Pulse Rate 82 84 80 Respiratory Rate 16 21 23 Blood Pressure 191/93 H 194/93 H Pulse Oximetry 98 98 98 12/25/20 13:00 12/25/20 13:27 12/25/20 13:30 Temperature Pulse Rate 81 72 77 Respiratory Rate 29 H 27 H 19 Blood Pressure 205/105 H 178/91 H 183/101 H Pulse Oximetry 98 98 98 12/25/20 14:00 12/25/20 14:30 Temperature Pulse Rate 72 74 Respiratory Rate 18 25 H Blood Pressure 161/83 H 178/90 H Pulse Oximetry 96 95 MDM - Arrhythmia/Palpitations Lab Data Attestation: I reviewed the patient's lab results. Result diagrams: 12/25/20 13:00 12/25/20 13:00 Labs: Lab Results 12/25/20 12/25/20 12/25/20 Range/Units 13:00 13:00 13:00 WBC 8.8 (4.5-11.0) X10^3/uL RBC 4.78 (4.5-5.9) X10^6/uL Hgb 14.3 (13.5-17.5) g/dL Hct 43.0 (41-53) % MCV 90.0 (80-100) fL MCH 29.9 (26-34) PG MCHC 33.3 (30-36) % RDW 15.3 H (11.6-14.8) % Plt Count 299 (150-400) X10^3/uL Neut % (Auto) 58.0 (50-75) % Lymph % (Auto) 29.9 (25-40) % Gila % (Auto) 7.8 (3-14) % Eos % (Auto) 3.9 (2-4) % Baso % (Auto) 0.4 (0-2) % Neut # (Auto) 5100 (5982-6197) /uL Lymph # (Auto) 2600 (3120-5734) /uL Gila # (Auto) 700 (0-900) /uL Eos # (Auto) 300 (0-450) /uL Baso # (Auto) 0 (0-100) /uL Sodium 136 L (137-145) mmol/L Potassium 4.0 (3.4-5.1) mmol/L Chloride 105 (98-107) mmol/L Carbon Dioxide 23 (22-32) mmol/L BUN 14 (9-20) mg/dL Creatinine 0.80 (0.66-1.25) mg/dL Estimated GFR > 60.0 (>60) mL/min BUN/Creatinine Ratio 17.5 (6-22) Glucose 116 H (80-110) mg/dL Calcium 9.2 (8.4-10.2) mg/dL Magnesium 1.8 (1.6-2.3) mg/dL Total Bilirubin 0.5 (0.2-1.3) mg/dL AST 33 (17-59) IU/L ALT 24 (<50) IU/L Alkaline Phosphatase 64 (38-126) U/L Total Creatine Kinase 120 (55-170) U/L CK-MB (CK-2) 2.30 (<2.37) ng/mL CK-MB (CK-2) Rel Index 1.9 (1.5-5.0) % Troponin I < 0.012 (0.01-0.034) ng/mL Total Protein 7.4 (6.3-8.2) g/dL Albumin 4.4 (3.5-5.0) g/dL Globulin 3.0 (1.7-4.1) g/dL Albumin/Globulin Ratio 1.5 (1.0-2.8) Lipase 154 (23-300) U/L TSH 1.70 (0.47-4.68) uIU/mL Imaging Data Chest x-ray: Radiologist's Impresson: [address] [address] XRay Report Signed Patient: Juanpablo Vo MR#: [id number] : 1945 Acct:[id number] Age/Sex: 75 / M Date of Service: 12/25/20 Loc: ED Accession Number: [id number] ?? Procedure: XR chest 1V Ordering Provider: Aaron Rico D.O. PROCEDURE:? XR CHEST 1V ? INDICATIONS:? chest pain ? TECHNIQUE:? One view of the chest was acquired.? ? COMPARISON:? [facility], CR, XR CHEST 1V, 06/04/2020, 13:02. ? FINDINGS:? ? Surgical changes and devices:? None.? ? Lungs and pleura:? Lungs are clear.? No pleural effusions or pneumothorax.? Unchanged right hemidiaphragm elevation. ? Mediastinum:? Mediastinal contours appear normal.? Heart size is enlarged. ? Bones and chest wall:? No suspicious bony lesions.? Overlying soft tissues appear unremarkable.? ? IMPRESSION:? No acute pulmonary process. ? ? Dictated by: Marina Gonzalze M.D. on 12/25/2020 at 13:16 ? ? Approved by: Marina Gonzalez M.D. on 12/25/2020 at 13:16? ECG Data Attestation: I personally reviewed and interpreted this ECG as follows: Interpretation: Sinus rhythm Ventricular rate of 69 Normal axis Normal QRS Normal QTC No ST T wave changes MDM Narrative Medical decision making narrative: Patient has been asymptomatic since arrival here in the emergency department. When he describes today are palpitations. He is on metoprolol. His electrolytes and thyroid testing is unremarkable. His EKG is unremarkable. Chest x-ray is unremarkable. I did discuss with him the lack of a definitive diagnosis. Did tell him that he does need further workup to include a Holter monitor and discussion about echocardiogram/stress testing. Informed that he can get this scheduled through his primary doctor. Plan will be is to increase his metoprolol from 1 tablet a day to 1.5 tablets a day. We did discuss strict return precautions and follow-up instructions. He expressed understanding and agreement. Discharge Plan Departure Patient Disposition: Home Clinical Impression: Palpitations Instructions: Arrhythmias Activity Restrictions/Additional Instructions: I recommend that you increase your metoprolol from 1 tablet today to 1.5 tablets on a daily basis. I also recommend you contact your primary doctor's your most likely need further workup to include a Holter monitor and discussion about a stress test and echocardiogram. Return to the emergency department for any new or worsening symptoms Prescriptions: No Action albuterol sulfate 90 mcg/actuation HFA aerosol inhaler 2 puff inhalation Q4-6H PRN (Reason: shortness of breath or wheezing) Qty: 6.7 RF: 0 (DME) Nabil Aerosol [place] Enhancer Spacer See Rx Instructions .Route Qty: 1 RF: 0 benzonatate [Tessalon Perles] 100 mg capsule 100 mg PO BID-TID PRN (Reason: cough) Qty: 20 RF: 0 levothyroxine 125 mcg capsule 125 mcg PO DAILY RF: 0 metoprolol succinate 25 mg tablet extended release 24 hr 25 mg PO DAILY RF: 0 metformin 1,000 mg tablet 1,000 mg PO BID RF: 0 rosuvastatin 20 mg tablet 20 mg PO DAILY RF: 0 (DME) lancets Misc See Rx Instructions .ROUTE .MEDSUPPLY Qty: 100 RF: 0 aspirin [Adult Low Dose Aspirin] 81 mg tablet,delayed release (DR/EC) 81 mg PO DAILY RF: 0 lisinopril 30 mg tablet 30 mg PO DAILY Qty: 90 RF: 2 Soliqua 100/33 100 unit-33 mcg/mL Insulin Pen 30 unit SUBCUT QAM RF: 0 Referrals: Homer Xavier MD [Primary Care Provider] -
== END 2020-12-25 14:48 | disposition home or self-care (01) ==
PROVIDERS: Emergency Provider Emergency Medicine; PCP Family Medicine
DX: R00.2 Palpitations (principal); R07.9 Chest pain, unspecified
CPT/HCPCS: 36415; 71045; 80053; 82550; 82553; 83690; 83735; 84443; 84484; 85025; 93005; 99283; 99284

== ENCOUNTER → 2021-01-14 09:44 | Outpatient (CLI) | payer MEDICARE, SELFPAY ==
--- NOTE | 2021-01-28 08:36 | PM.CARDMON.1 ---
Audio Visual Aids Director Report Referral & Results Date Patient Seen: 01/14/21 Requesting provider: Homer Xavier Indication: Palpitations Duration of monitoring (days): 8 Diary information: There were 6 patient triggered events and 5 patient diary entries Patient triggered events were associated with (within 45 seconds) sinus rhythm and PVCs Patient diary events were associated with (within 45 seconds) sinus rhythm and PACs Data: Minimum heart rate identified was 55 beats per minute at 23:11 on 01/21/2021 Maximum heart rate was 130 beats per minute at 11:38 on 01/16/2021 Less than 1% of identified beats were ventricular or supraventricular ectopic in origin, which would classify them as rare. No other significant dysrhythmias identified Impression: 8+ day quality assurance monitor body demonstrating rare PACs and PVCs. Based on patient events there is no clear correlation between patient reported events and anyone particular dysrhythmia. Clinical correlation suggested
== END ==
PROVIDERS: PCP Family Medicine; Referring Provider Family Medicine; Visit Provider Family Medicine
DX: R00.2 Palpitations (principal)
CPT/HCPCS: 93242; 93244

== ENCOUNTER → 2021-02-02 12:16 | Outpatient (CLI) | payer MEDICARE, SELFPAY ==
[2021-02-02 13:02] LABS: Hemoglobin A1C% w Est Avg Glu 6.9 % (4.0-6.0)
== END ==
PROVIDERS: PCP Family Medicine; Referring Provider Family Medicine; Visit Provider Family Medicine
DX: E11.9 Type 2 diabetes mellitus without complications (principal); I10 Essential (primary) hypertension; R00.2 Palpitations
CPT/HCPCS: 36415; 83036

== ENCOUNTER → 2021-03-25 09:36 | Outpatient (CLI) | payer MEDICARE, SELFPAY ==
--- NOTE | 2021-03-25 09:37 | DI.ECHO.S_ITS ---
[facility] +---------+ : : [address] : : : : [id number] : : : : Phone: [phone]+ Echocardiogram Report + + :Name: NORMAN PRUITT Study Date: 03/25/2021 Height: 71 in : :[facility] ReadingLocation: Weight: 184 lb : : Gender: Male BSA: 2.0 m2 : :: 1945 Age: 75 yrs BP: 130/82 mmHg: :Reason For Study: Palpitations : : Performed By: Yehuda Murcia : :Referring: LOC KULKARNI : + + Interpretation Summary The left ventricle is normal in size and wall thickness. Left ventricular systolic function appears normal without focal wall motion abnormalities. The ejection fraction is estimated to be 60-65%. Diastolic parameters suggest a relaxation abnormality of the left ventricle, consistent with probable normal filling pressures. The right ventricle is normal in size and function. Pulmonary artery pressures cannot be estimated because of the lack of a measurable TR jet velocity but the IVC suggests a CVP of around 3 mmHg. Both atria are normal in size. There is no significant valvular heart disease. The aortic root is normal size. Procedure: A two-dimensional transthoracic echocardiogram with color flow and Doppler was performed. The study quality was technically adequate. There is no prior echocardiogram noted for this patient. The patient was in normal sinus rhythm during the exam. Left Ventricle: The left ventricle is normal in size and wall thickness. Left ventricular systolic function appears normal without focal wall motion abnormalities. The ejection fraction is estimated to be 60-65%. Diastolic parameters suggest a relaxation abnormality of the left ventricle, consistent with probable normal filling pressures. Right Ventricle: The right ventricle is normal in size and function. Atria: Both atria are normal in size. There is no Doppler evidence for an interatrial shunt. Mitral Valve: The mitral valve is normal. There is no mitral regurgitation noted. Aortic Valve: The aortic valve is trileaflet. The aortic valve opens well. The aortic valve is slightly calcified. No aortic regurgitation is present. Tricuspid Valve: The tricuspid valve is normal. There is a trace or physiologic amount of tricuspid regurgitation. Pulmonary artery pressures cannot be estimated because of the lack of a measurable TR jet velocity but the IVC suggests a CVP of around 3 mmHg. Pulmonic Valve: The pulmonic valve leaflets are thin and pliable; valve motion is normal. There is a trace or physiologic amount of pulmonic regurgitation. There is no significant valvular heart disease. Great Vessels: The aortic root is normal size. The ascending aorta is normal in size. The aortic arch is normal in size. The IVC is of normal diameter and collapses greater than 50% with a sniff. This suggests a low right atrial pressure of 3 mm Hg. Pericardium/ Pleura There is no pericardial effusion. There is an anterior echo-free space consistent with a fat pad. There is no pleural effusion. MMode/2D Measurements & Calculations LVIDd: 2.9 cm LVOT diam: 2.2 cm LVIDs: 1.9 cm Ao root diam: 3.6 cm FS: 34.8 % asc Aorta Diam: 3.2 cm IVSd: 1.3 cm Ao Arch Diam (Prox Trans): 3.0 cm LVPWd: 1.2 cm LV sanchez. diameter/BSA (cm/m^2): 1.4 LV sys. diameter/BSA (cm/m^2): 0.92 LA A2 area: 13.0 cm2 RA long axis: 5.3 cm LA A4 area: 10.1 cm2 RA area: 11.5 cm2 LA length (vol): 4.2 cm RA vol: 21.1 ml LA vol: 26.3 ml RA : 10.4 ml/m2 LA vol index: 12.9 ml/m2 TAPSE: 2.2 cm Doppler Measurements & Calculations Ao V2 max: 130.2 cm/sec LVOT Max Kvng: 103.4 cm/sec Ao V2 mean: 92.9 cm/sec LV V1 max P.3 mmHg Ao max P.8 mmHg LV V1 VTI: 16.9 cm Ao mean P.7 mmHg JULIAN(I,D): 2.9 cm2 Ao V2 VTI: 21.6 cm JULIAN(V,D): 2.9 cm2 sev ratio: 0.78 JULIAN indexed to BSA (cm^2/m^2): 1.4 MV E max kvng: 87.8 cm/sec PA V2 max: 70.7 cm/sec MV A max kvng: 112.0 cm/sec PA V2 mean: 51.3 cm/sec MV E/A: 0.78 PA mean P.1 mmHg Med Peak E' Kvng: 9.4 cm/sec PA pr(Accel): 44.3 mmHg E/E' med: 9.3 Lat Peak E' Kvng: 9.1 cm/sec E/E' lat: 9.7 E/e' average: 9.5 MV dec time: 0.11 sec SV(LVOT): 62.4 ml Reading Physician:05:03 PM
[2021-03-25 10:10] LABS: COVID19 -Nasal RAPID Negative (Negative)
--- NOTE | 2021-03-25 18:56 | DI.NM.S_ITS ---
DATE OF SERVICE: 03/25/2021 PROCEDURE: Exercise perfusion study. INDICATION: Palpitation, chest discomfort, and underlying diabetes mellitus, hypertension and hyperlipidemia. RADIOPHARMACEUTICAL: 25.5 millicurie technetium-99m Myoview IV was injected at stress and 12.3 millicurie technetium-99m Myoview IV was injected at rest. CARDIAC STRESS: The patient underwent exercise Myoview stress test under the supervision of an attending staff. The patient walked on Cipriano protocol for 9 minutes, achieved 101 percent of target heart rate, normal blood pressure response. Achieved JAVY of -43 percent. No chest pain or anginal symptoms. [place] fatigue. Baseline rhythm was sinus. During stress, no convincing ischemic changes. Had some occasional PVCs during first stage, without any complex sustained arrhythmias. RAW DATA: There was increased subdiaphragmatic activity. Gut shadow seen encroaching the inferior border of the heart. GATED STUDY: Stress LV ejection fraction 76 percent. Resting end-diastolic volume 76 mL. No obvious wall motion abnormalities. TID ratio 0.86, which is within normal limits. Lung/heart rate is 0.38, which is within normal limits. MYOCARDIAL PERFUSION SCAN: Stress supine and resting supine, as well as stress prone images were compared to each other. Stress supine and resting supine images revealed small size, minimally decreased perfusion of basal inferolateral wall, which got completely resolved during prone images, suggestive of tissue attenuation artifact. The stress prone images revealed normal myocardial perfusion. CONCLUSION: This is a normal myocardial perfusion study with evidence of tissue attenuation artifact, which got resolved during stress prone images. Excellent exercise tolerance. JAVY -43 percent. Normal hemodynamic response. No ischemic electrocardiographic changes. Occasional premature ventricular contractions during first stage of exercise. Overall, this is a low-risk myocardial perfusion scan. Vo Juanpablo - MONSTER/wilfred/shaji doc#: [id number]/job#: [id number] dd: 03/25/2021 17:07:00 dt: 03/25/2021 17:46:00 DICTATING MD/COPIES TO: Мария Cain MD COPIES MNE: MAUREEN;
== END ==
PROVIDERS: PCP Family Medicine; Referring Provider Family Medicine; Visit Provider Family Medicine
DX: R00.2 Palpitations (principal); R07.89 Other chest pain; I10 Essential (primary) hypertension; E11.9 Type 2 diabetes mellitus without complications; E78.5 Hyperlipidemia, unspecified; Z20.822 Contact with and (suspected) exposure to COVID-19
CPT/HCPCS: 78452; 87635; 93017; 93306; A9502

== ENCOUNTER → 2021-06-14 07:38 | Outpatient (CLI) | payer MEDICARE, SELFPAY ==
[2021-06-14 09:01] LABS: Hemoglobin A1C% w Est Avg Glu 7.9 % (4.0-6.0)
== END ==
PROVIDERS: PCP Family Medicine; Referring Provider Family Medicine; Visit Provider Family Medicine
DX: E11.9 Type 2 diabetes mellitus without complications (principal); R00.2 Palpitations; Z79.4 Long term (current) use of insulin
CPT/HCPCS: 36415; 83036

== ENCOUNTER → 2021-12-29 07:53 | Outpatient (CLI) | payer MEDICARE, SELFPAY ==
[2021-12-29 09:28] LABS: Prostate Specific Antigen Scrn < 0.064 ng/mL (0.1-4.0)
== END ==
PROVIDERS: PCP Family Medicine; Referring Provider Family Medicine; Visit Provider Family Medicine
DX: E11.9 Type 2 diabetes mellitus without complications (principal); Z12.5 Encounter for screening for malignant neoplasm of prostate; Z79.4 Long term (current) use of insulin
CPT/HCPCS: 36415; 83036; G0103

== ENCOUNTER 2022-03-08 07:46 | Outpatient (RCR) | payer MEDICARE, SELFPAY ==
--- NOTE | 2022-03-08 22:38 | PT.OIE ---
Current Diagnoses Pain in right hip (03/08/22) Low back pain, unspecified (03/08/22) Past Medical History (Last Reviewed 12/25/20 @ 13:56 by Aaron Rico DO) Allergies Chest discomfort Chicken pox (~1951) Diabetes mellitus Fractures Gout Graves disease (~1987) History of elevated PSA (~2003) HTN (hypertension) Hyperlipidemia Hypertension Hypothyroidism (~1987) Measles (~1952) Mumps (~1951) Palpitations Prostate cancer (~2003) Tinnitus (~1986) Past Surgical History (Last Reviewed 11/22/20 @ 12:14 by RAFAEL Corcoran) Anesthesia History of prostatectomy (~2003) History of thyroidectomy (~2000) Tibia/fibula fracture (~11/1969) Visit Care Team Role Provider Type Homer Xavier MD Attending Provider Physician Family Provider Primary Care Provider Referring Provider Specialty: Family Practice Address: [address] [place] [address] Email: [email or web address] Physical Therapy Initial Evaluation PT-OP-A Visit Information Start: 03/07/22 09:53 Freq: Status: Active Protocol: Document 03/08/22 09:04 AMB (Rec: 03/08/22 09:15 AMB [id number]) Out-Patient Physical Therapy Visit Information Visit Information Visit Type Initial Evaluation Visit Start Time 09:00 Visit Stop Time 09:45 Total Visit Minutes 45 Visit Number 1 PT-OP-B Current Condition Start: 03/07/22 09:53 Freq: Status: Active Protocol: Document 03/08/22 09:04 AMB (Rec: 03/08/22 09:15 AMB [id number]) Current Condition History of Current Condition Onset Date 2009 Current Complaints R sided low back History of Current Condition Sitting seems to make the pain worse. Variable in nature, can be sharp with move from sit to stand. Does yardwork and walks the dog and that makes it feel better. 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 Denies numbness/tingling. Can ride in the car for a long time. 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 Personal Factors Other Personal Factors That May Effect Hx prostate CA, DMII, Therapy/Recovery hypothyroid PT-OP-C Subjective Start: 03/07/22 09:53 Freq: Status: Active Protocol: Document 03/08/22 09:00 AMB (Rec: 03/08/22 16:23 AMB [id number]) Patient Questionnaires Lower Extremity Functional Scale LEFS Score 77 LEFS Impairment 1 to 19% Impaired (Score 63-79 ) PT-OP-J Posture/Palpation/Skin Start: 03/07/22 09:53 Freq: Status: Active Protocol: Document 03/08/22 09:00 AMB (Rec: 03/08/22 16:23 AMB [id number]) Posture Evaluation Comments Posture Comments Scoliosis with R paraspinals, scapula more prominent, R hip high, reports wore orthotic shoe as a child but no bracing or surgical history Palpation Assessment Location One Palpation Location R back Palpation Details Tenderness in R QL, denies pain that radiates into the R groin PT-OP-K Range of Motion Start: 03/07/22 09:53 Freq: Status: Active Protocol: Document 03/08/22 09:00 AMB (Rec: 03/08/22 16:23 AMB [id number]) Lumbar Spine Range of Motion Lumbar Spine Active Degrees Testing Position Standing Flexion 50 Extension 20 Lateral Flexion Left 20 Lateral Flexion Right 10 Hip Goniometric Range of Motion Hip Right Passive Testing Position Supine Flexion w/Knee Flexed 95 Internal Rotation 8 External Rotation 40 PT-OP-M Strength Start: 03/07/22 09:53 Freq: Status: Active Protocol: Document 03/08/22 09:00 AMB (Rec: 03/08/22 16:23 AMB [id number]) Hip Strength Hip Manual Muscle Testing Right Flexion (L2) 4 Good Extension (S1) 4 Good Abduction 4 Good Left Flexion (L2) 4+ Good+ Extension (S1) 4+ Good+ Abduction 4+ Good+ PT-OP-Q Treatments Start: 03/07/22 09:53 Freq: Status: Active Protocol: Document 03/09/22 16:01 AMB (Rec: 03/09/22 16:02 AMB [id number]) Therapeutic Exercises Other Exercises 1 Other Exercise Name odalis pose with sidebend Reps/Minutes 30x2 PT-OP-T Assessment and Plan Start: 03/07/22 09:53 Freq: Status: Active Protocol: Document 03/08/22 09:00 AMB (Rec: 03/13/22 22:37 [facility] [id number]) Physical Therapy Assessment Rehab Potential Rehabilitation Potential Good Evaluation Complexity Number of Personal Factors/Comorbidities 1-2 Number of Body Systems Impaired 1-2 Clinical Presentation at Evaluation Stable Impairments Impairments Activity Tolerance,Posture,ROM ,Strength Goals HEP Short Term Goal (STG) Arvind will be independent with a exercise program for stretching and strengthening his core and hips. STG Duration 5 weeks Sitting tolerance Short Term Goal (STG) Arvind will sit at his computer for 1 hour without an increase in his baseline back pain. STG Duration 5 weeks Half-Way Goal (LTG) Arvind will move from sit to stand without an increase in his baseline pain. LTG Duration 10 weeks Assessment Summary Assessment Arvind has a long standing history of scoliosis which is likely involved in his current right sided low back pain. Hip was evaluated and while his internal rotation ROM is limited is the less likely contributor to his pain. His main concern is sitting at his workstation. However he currently does not perform an exercise program other than walking. Generally movement, walking makes his pain better. He was quite stiff in his R quadratus lumborum and will benefit from physical therapy for manual therapy and exercise to reduce his pain in sitting. Physical Therapy Plan Frequency and Duration Frequency of Treatment 2x/Week Duration of treatment (weeks) 10 Plan of Care Start Date 03/08/22 Plan of Care End Date 05/17/22 Therapeutic Interventions Therapeutic Interventions Home Exercise Program,Manual Therapy,Neuromuscular Re- education,Self-Care/Home Management,Soft Tissue Mobilization,Therapeutic Activities,Therapeutic Exercises Modalities Cold Pack/Ice Massage,Electric Stimulation,Hot Packs Next Visit Focus/Plan Next Note Type Treatment Note Next Visit Plan Review odalis pose QL stretch, begin manual to reduce strain /tension on R paraspinals/QL
--- NOTE | 2022-03-08 22:38 | PT.OPPOC ---
Physical, Occupational & Speech Therapy At [facility] Current Diagnoses Pain in right hip (03/08/22) Low back pain, unspecified (03/08/22) Visit Care Team Role Provider Type Homer Xavier MD Attending Provider Physician Family Provider Primary Care Provider Referring Provider Specialty: Family Practice Address: [address] [place] [address] Email: [email or web address] Plan Of Care PT-OP-T Assessment and Plan Start: 03/07/22 09:53 Freq: Status: Active Protocol: Document 03/08/22 09:00 AMB (Rec: 03/13/22 22:37 AMB [id number]) Physical Therapy Assessment Rehab Potential Rehabilitation Potential Good Evaluation Complexity Number of Personal Factors/Comorbidities 1-2 Number of Body Systems Impaired 1-2 Clinical Presentation at Evaluation Stable Impairments Impairments Activity Tolerance,Posture,ROM ,Strength Goals HEP Short Term Goal (STG) Arvind will be independent with a exercise program for stretching and strengthening his core and hips. STG Duration 5 weeks Sitting tolerance Short Term Goal (STG) Arvind will sit at his computer for 1 hour without an increase in his baseline back pain. STG Duration 5 weeks Front Sight Attacher Goal (LTG) Arvind will move from sit to stand without an increase in his baseline pain. LTG Duration 10 weeks Assessment Summary Assessment Arvind has a long standing history of scoliosis which is likely involved in his current right sided low back pain. Hip was evaluated and while his internal rotation ROM is limited is the less likely contributor to his pain. His main concern is sitting at his workstation. However he currently does not perform an exercise program other than walking. Generally movement, walking makes his pain better. He was quite stiff in his R quadratus lumborum and will benefit from physical therapy for manual therapy and exercise to reduce his pain in sitting. Physical Therapy Plan Frequency and Duration Frequency of Treatment 2x/Week Duration of treatment (weeks) 10 Plan of Care Start Date 03/08/22 Plan of Care End Date 05/17/22 Therapeutic Interventions Therapeutic Interventions Home Exercise Program,Manual Therapy,Neuromuscular Re- education,Self-Care/Home Management,Soft Tissue Mobilization,Therapeutic Activities,Therapeutic Exercises Modalities Cold Pack/Ice Massage,Electric Stimulation,Hot Packs Next Visit Focus/Plan Next Note Type Treatment Note Next Visit Plan Review odalis pose QL stretch, begin manual to reduce strain /tension on R paraspinals/QL Plan of Care Dates Plan of Care Start Date 03/08/22 Plan of Care End Date 05/17/22 Electronically Signed by: Rere Valencia, PT 03/13/22 2472 If you are in agreement with this Plan of Care, please return a signed and dated copy. I have reviewed this Plan of Care and certify that the skilled therapy services above are required to meet the patient?s needs. Physician Signature Date Printed Name and Credentials Clinical Instructor Signature Printed Name and Credentials
--- NOTE | 2022-03-16 08:22 | PT.OTN ---
Current Diagnoses Pain in right hip (03/08/22) Low back pain, unspecified (03/08/22) Physical Therapy Treatment Note PT-OP-A Visit Information Start: 03/07/22 09:53 Freq: Status: Active Protocol: Document 03/08/22 09:04 AMB (Rec: 03/08/22 09:15 AMB [id number]) Out-Patient Physical Therapy Visit Information Visit Information Visit Type Initial Evaluation Visit Start Time 09:00 Visit Stop Time 09:45 Total Visit Minutes 45 Visit Number 1 PT-OP-B Current Condition Start: 03/07/22 09:53 Freq: Status: Active Protocol: Document 03/08/22 09:04 AMB (Rec: 03/08/22 09:15 AMB [id number]) Current Condition History of Current Condition Onset Date 2009 Current Complaints R sided low back History of Current Condition Sitting seems to make the pain worse. Variable in nature, can be sharp with move from sit to stand. Does yardwork and walks the dog and that makes it feel better. 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 Denies numbness/tingling. Can ride in the car for a long time. 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 Personal Factors Other Personal Factors That May Effect Hx prostate CA, DMII, Therapy/Recovery hypothyroid PT-OP-C Subjective Start: 03/07/22 09:53 Freq: Status: Active Protocol: Document 03/08/22 09:00 AMB (Rec: 03/08/22 16:23 AMB [id number]) Patient Questionnaires Lower Extremity Functional Scale LEFS Score 77 LEFS Impairment 1 to 19% Impaired (Score 63-79 ) PT-OP-J Posture/Palpation/Skin Start: 03/07/22 09:53 Freq: Status: Active Protocol: Document 03/08/22 09:00 AMB (Rec: 03/08/22 16:23 AMB [id number]) Posture Evaluation Comments Posture Comments Scoliosis with R paraspinals, scapula more prominent, R hip high, reports wore orthotic shoe as a child but no bracing or surgical history Palpation Assessment Location One Palpation Location R back Palpation Details Tenderness in R QL, denies pain that radiates into the R groin PT-OP-K Range of Motion Start: 03/07/22 09:53 Freq: Status: Active Protocol: Document 03/08/22 09:00 AMB (Rec: 03/08/22 16:23 AMB [id number]) Lumbar Spine Range of Motion Lumbar Spine Active Degrees Testing Position Standing Flexion 50 Extension 20 Lateral Flexion Left 20 Lateral Flexion Right 10 Hip Goniometric Range of Motion Hip Right Passive Testing Position Supine Flexion w/Knee Flexed 95 Internal Rotation 8 External Rotation 40 PT-OP-M Strength Start: 03/07/22 09:53 Freq: Status: Active Protocol: Document 03/08/22 09:00 AMB (Rec: 03/08/22 16:23 AMB [id number]) Hip Strength Hip Manual Muscle Testing Right Flexion (L2) 4 Good Extension (S1) 4 Good Abduction 4 Good Left Flexion (L2) 4+ Good+ Extension (S1) 4+ Good+ Abduction 4+ Good+ PT-OP-Q Treatments Start: 03/07/22 09:53 Freq: Status: Active Protocol: Document 03/09/22 16:01 AMB (Rec: 03/09/22 16:02 AMB [id number]) Therapeutic Exercises Other Exercises 1 Other Exercise Name odalis pose with sidebend Reps/Minutes 30x2 PT-OP-T Assessment and Plan Start: 03/07/22 09:53 Freq: Status: Active Protocol: Document 03/16/22 08:21 AMB (Rec: 03/16/22 08:22 AMB [id number]) Physical Therapy Assessment Assessment Summary Assessment Pt called office to state he no longer required therapy. Pt is now discharged. He was seen for eval only. Physical Therapy Plan Discharge Physical Therapy Discharge Reasons Patient Request
== END 2022-03-16 08:32 | disposition home or self-care (01) ==
LOC: PHYS 07:46
PROVIDERS: Absent Provider Family Medicine; Family Provider Family Medicine; PCP Family Medicine; Referring Provider Family Medicine; Visit Provider Family Medicine
DX: M25.551 Pain in right hip (principal); M54.50 Low back pain, unspecified
CPT/HCPCS: 97161

== ENCOUNTER → 2022-03-31 07:41 | Outpatient (CLI) | payer MEDICARE, SELFPAY ==
[2022-03-31 10:05] LABS: Add Manual Diff / Slide Review NO; Basophils Absolute Auto 0 /uL (0-100); Basophils Percent Auto 0.2 % (0-2); Eosinophils Absolute Auto 200 /uL (0-450); Eosinophils Percent Auto 3.6 % (2-4); Hematocrit 41.5 % (41-53); Hemoglobin 13.9 g/dL (13.5-17.5); Lymphocytes Absolute Auto 3200 /uL (1100-4500); Lymphocytes Percent Auto 47.4 % (25-40); Mean Corpuscular HGB Conc 33.6 % (30-36); Mean Corpuscular Hemoglobin 28.9 PG (26-34); Monocytes Absolute Auto 500 /uL (0-900); Monocytes Percent Auto 7.5 % (3-14); Neutrophils Absolute Auto 2700 /uL (1500-7000); Neutrophils Percent Auto 41.3 % (50-75); Platelet Count 309 X10^3/uL (150-400); Red Blood Cell Count 4.83 X10^6/uL (4.5-5.9); Red Cell Distribution Width 14.3 % (11.6-14.8); White Blood Cell Count 6.6 X10^3/uL (4.5-11.0)
[2022-03-31 10:19] LABS: Hemoglobin A1C% w Est Avg Glu 7.7 % (4.0-6.0)
[2022-03-31 11:08] LABS: Alanine Aminotransferase 23 IU/L (<50); Albumin Globulin Ratio 1.3 (1.0-2.8); Alkaline Phosphatase 63 U/L (38-126); Aspartate Aminotransferase 23 IU/L (17-59); BUN Creatinine Ratio 20.9 (6-22); Bilirubin Total 0.5 mg/dL (0.2-1.3); Blood Urea Nitrogen 18 mg/dL (9-20); Calcium 8.8 mg/dL (8.4-10.2); Carbon Dioxide 31 mmol/L (22-32); Chloride 98 mmol/L (98-107); Cholesterol 142 mg/dL (140-199); Estimated Glomerular Filt Rate > 60 mL/min (>60); Glucose 132 mg/dL (80-110); HDL Cholesterol 44 mg/dL (40-60); HEMOLYSIS < 15 (0-50); LDL Cholesterol Calculated 80 mg/dL (<100); Potassium 4.1 mmol/L (3.4-5.1); Sodium 138 mmol/L (137-145); Triglycerides 90 mg/dL (35-150)
[2022-03-31 17:01] LABS: Free T4, Direct Thyroxine 1.77 ng/dL (0.78-2.19)
== END ==
PROVIDERS: Family Provider Family Medicine; PCP Family Medicine; Referring Provider Family Medicine; Visit Provider Family Medicine
DX: C61 Malignant neoplasm of prostate (principal); E11.9 Type 2 diabetes mellitus without complications; E03.9 Hypothyroidism, unspecified; I10 Essential (primary) hypertension; Z00.00 Encounter for general adult medical examination without abnormal findings; Z79.4 Long term (current) use of insulin
CPT/HCPCS: 36415; 80053; 80061; 83036; 84439; 84443; 85025

== ENCOUNTER → 2022-05-24 12:58 | Outpatient (CLI) | payer MEDICARE, SELFPAY ==
--- NOTE | 2022-05-24 13:00 | DI.RAD.S_ITS ---
PROCEDURE: XR LUMBAR SPINE MIN 4V INDICATIONS: chronic back and bilateral hip pain TECHNIQUE: 5 views of the lumbar spine were acquired, including bilateral oblique views. COMPARISON: None. FINDINGS: Bones: 5 nonrib-bearing vertebrae are present. There is normal bony alignment. No vertebral body compression fractures. No suspicious bony lesions. Multilevel disc space narrowing and endplate osteophyte formation. Facet hypertrophy throughout the mid and lower lumbar spine. There is a possible left-sided L5-S1 pars interarticularis defect. Soft tissues: Overlying bowel gas pattern is normal. No suspicious soft tissue calcifications. IMPRESSION: 1. Multilevel degenerative disc and facet disease. 2. Possible left-sided L5-S1 pars interarticularis defect. 3. These findings could be further assessed with MRI, if clinically indicated. Dictated by: Mauro Ramos M.D. on 05/24/2022 at 13:32 Transcribed by: CHRIS on 05/24/2022 at 13:33 Approved by: Mauro Ramos M.D. on 05/24/2022 at 15:37
--- NOTE | 2022-05-24 13:00 | DI.RAD.S_ITS ---
PROCEDURE: XR HIP W PEL IF DONE STUART MIN 4V INDICATIONS: chronic back and bilateral hip pain TECHNIQUE: AP pelvis with lateral view(s) of the bilateral hip(s). COMPARISON: None. FINDINGS: Bones: No fractures or dislocations. Pelvic ring appears intact. No suspicious bony lesions. Moderate right and mild left hip joint space narrowing and periarticular osteophyte formation. Soft tissues: The visualized bowel gas pattern is normal. No suspicious soft tissue calcifications. IMPRESSION: Bilateral hip osteoarthritis. No acute fracture. No osseous lesion. If symptoms and/or clinical suspicion for pathology persist, further assessment with repeat, or advanced imaging (e.g., CT, MRI, or bone scan) may be helpful for further assessment. Dictated by: Mauro Ramos M.D. on 05/24/2022 at 13:39 Transcribed by: CHRIS on 05/24/2022 at 13:40 Approved by: Mauro Ramos M.D. on 05/24/2022 at 15:37
== END ==
PROVIDERS: Family Provider Family Medicine; PCP Family Medicine; Referring Provider Family Medicine; Visit Provider Family Medicine
DX: M51.36 Other intervertebral disc degeneration, lumbar region (principal); M16.0 Bilateral primary osteoarthritis of hip; M54.50 Low back pain, unspecified; M25.551 Pain in right hip; M25.552 Pain in left hip; G89.29 Other chronic pain
CPT/HCPCS: 72110; 73522

== ENCOUNTER → 2022-06-30 13:20 | Outpatient (CLI) | payer MEDICARE, SELFPAY ==
--- NOTE | 2022-06-30 13:22 | DI.MRI.S_ITS ---
PROCEDURE: MR LUMBAR SPINE WO CON INDICATIONS: hip pain TECHNIQUE: Noncontrast sagittal T1 spin echo and T2 fast echo, sagittal STIR, and T2 fast spin echo through the lumbar spine. In cases with scoliosis, additional coronal T2 fast spin echo may be performed. COMPARISON: [facility], [place], XR LUMBAR SPINE MIN 4V, 05/24/2022, 13:06. FINDINGS: Image quality: Excellent. Alignment and Curvature: There is normal bony alignment. Bone Marrow: Marrow is of normal overall signal. No acute vertebral body compression fractures. Spinal Cord: Conus medullaris terminates at the L1-L2 level. Visualized cord demonstrates normal signal and size. Paraspinous Soft Tissues: No paravertebral masses. T12-L1: Normal appearance. L1-L2: Minimal disc bulge. No canal stenosis or foraminal stenosis. L2-L3: Mild disc bulge. Facet hypertrophy. Vioj-lg-cmlvghfg canal stenosis. No significant right foraminal narrowing. Moderate left foraminal narrowing with mild flattening deformity on the exiting left L2 nerve root L3-L4: Disc bulge. Prominent facet hypertrophy. Moderate to severe canal stenosis. No significant foraminal narrowing. L4-L5: Severe disc height loss. Disc bulge. Facet hypertrophy. Uunt-uj-mgvhejhk canal stenosis. Qxnv-zf-jaowrovm right foraminal narrowing. Moderate left foraminal narrowing with mild flattening deformity on the exiting left L4 nerve root. L5-S1: Minimal disc bulge. Mild facet hypertrophy. No canal stenosis or foraminal stenosis. IMPRESSION: 1. There is underlying multilevel facet arthropathy. 2. Canal stenosis is mild to moderate at L2-L3, moderate to severe at L3-L4, and mild to moderate at L4-L5. 3. Multilevel foraminal narrowing as described above. Dictated by: Dave Vallejo M.D. on 06/30/2022 at 15:37 Approved by: Dave Vallejo M.D. on 06/30/2022 at 15:42
== END ==
PROVIDERS: Family Provider Family Medicine; PCP Family Medicine; Referring Provider Family Medicine; Visit Provider Family Medicine
DX: M47.816 Spondylosis without myelopathy or radiculopathy, lumbar region (principal); M48.061 Spinal stenosis, lumbar region without neurogenic claudication; M25.552 Pain in left hip; M54.50 Low back pain, unspecified; G89.29 Other chronic pain
CPT/HCPCS: 72148

== ENCOUNTER → 2022-08-25 16:17 | Outpatient (CLI) | payer MEDICARE, SELFPAY ==
--- NOTE | 2022-08-25 16:23 | DI.RAD.S_ITS ---
PROCEDURE: XR HIP W PEL IF DONE RT 2V INDICATIONS: UNSPECIFIED LOWER BACK PAIN TECHNIQUE: AP pelvis with lateral view(s) of the right hip(s). COMPARISON: Located [facility], , XR HIP W PEL IF DONE STUART 3TO4V, 05/24/2022, 13:06. FINDINGS: Bones: No fractures or dislocations. Pelvic ring appears intact. No suspicious bony lesions. Moderate joint space narrowing and spurring of the right hip, possible subchondral cystic change Soft tissues: The visualized bowel gas pattern is normal. No suspicious soft tissue calcifications. IMPRESSION: No acute fracture identified. Degenerative changes of the right hip. If symptoms persist, follow-up radiographs and/or CT or MRI may be helpful for further evaluation. Dictated by: Ananth Griffin M.D. on 08/25/2022 at 17:11 Approved by: Ananth Griffin M.D. on 08/25/2022 at 17:12
== END ==
PROVIDERS: Family Provider Family Medicine; PCP Family Medicine; Referring Provider Anesthesiology Pain Medicine; Visit Provider Anesthesiology Pain Medicine
DX: M54.50 Low back pain, unspecified (principal)
CPT/HCPCS: 73502

== ENCOUNTER → 2023-02-01 08:22 | Outpatient (CLI) | payer MEDICARE, SELFPAY ==
[2023-02-01 09:49] LABS: Hemoglobin A1C% w Est Avg Glu 7.8 % (4.0-6.0)
[2023-02-01 11:20] LABS: Creatinine Urine Random 80.6 mg/dL
[2023-02-01 11:23] LABS: Microalbumi Creatinin Ratio Ur 74.4 ug/mg CR (<30)
== END ==
PROVIDERS: Family Provider Family Medicine; PCP Family Medicine; Referring Provider Family Medicine; Visit Provider Family Medicine
DX: E11.9 Type 2 diabetes mellitus without complications (principal); I10 Essential (primary) hypertension; Z79.4 Long term (current) use of insulin
CPT/HCPCS: 36415; 82043; 82570; 83036

== ENCOUNTER → 2023-04-08 07:48 | Outpatient (CLI) | payer MEDICARE, SELFPAY ==
[2023-04-08 09:26] LABS: Add Manual Diff / Slide Review NO; Basophils Absolute Auto 100 /uL (0-100); Basophils Percent Auto 0.7 % (0-2); Eosinophils Absolute Auto 300 /uL (0-450); Eosinophils Percent Auto 3.3 % (2-4); Hematocrit 43.2 % (41-53); Hemoglobin 14.6 g/dL (13.5-17.5); Lymphocytes Absolute Auto 3800 /uL (1100-4500); Lymphocytes Percent Auto 43.8 % (25-40); Mean Corpuscular HGB Conc 33.7 % (30-36); Mean Corpuscular Hemoglobin 29.3 PG (26-34); Mean Corpuscular Volume 86.8 fL (80-100); Monocytes Absolute Auto 600 /uL (0-900); Monocytes Percent Auto 7.4 % (3-14); Neutrophils Absolute Auto 3900 /uL (1500-7000); Neutrophils Percent Auto 44.8 % (50-75); Platelet Count 284 X10^3/uL (150-400); Red Blood Cell Count 4.98 X10^6/uL (4.5-5.9); Red Cell Distribution Width 13.6 % (11.6-14.8); White Blood Cell Count 8.8 X10^3/uL (4.5-11.0)
[2023-04-08 10:07] LABS: Alanine Aminotransferase 25 IU/L (<50); Albumin Globulin Ratio 1.4 (1.0-2.8); Alkaline Phosphatase 66 U/L (38-126); Aspartate Aminotransferase 27 IU/L (17-59); BUN Creatinine Ratio 24.1 (6-22); Bilirubin Total 0.7 mg/dL (0.2-1.3); Blood Urea Nitrogen 20 mg/dL (9-20); Calcium 9.5 mg/dL (8.4-10.2); Carbon Dioxide 26 mmol/L (22-32); Chloride 102 mmol/L (98-107); Cholesterol 151 mg/dL (140-199); Estimated Glomerular Filt Rate > 60 mL/min (>60); Globulin 2.9 g/dL (1.7-4.1); Glucose 129 mg/dL (80-110); HDL Cholesterol 58 mg/dL (40-60); HEMOLYSIS < 15 (0-50); LDL Cholesterol Calculated 72 mg/dL (<100); Potassium 4.4 mmol/L (3.4-5.1); Sodium 136 mmol/L (137-145); Total Protein 6.9 g/dL (6.3-8.2); Triglycerides 104 mg/dL (35-150)
[2023-04-08 10:22] LABS: Hemoglobin A1C% w Est Avg Glu 7.7 % (4.0-6.0)
[2023-04-08 10:33] LABS: TSH w/ Reflex to FT4 3.52 uIU/mL (0.47-4.68)
[2023-04-08 10:38] LABS: Prostate Specific Antigen Scrn < 0.064 ng/mL (0.1-4.0)
== END ==
PROVIDERS: Family Provider Family Medicine; PCP Family Medicine; Referring Provider Family Medicine; Visit Provider Family Medicine
DX: I10 Essential (primary) hypertension (principal); E11.9 Type 2 diabetes mellitus without complications; Z12.5 Encounter for screening for malignant neoplasm of prostate; C61 Malignant neoplasm of prostate; E03.9 Hypothyroidism, unspecified
CPT/HCPCS: 36415; 80053; 80061; 83036; 84443; 85025; G0103

== ENCOUNTER → 2023-05-29 11:24 | Outpatient (CLI) | payer MEDICARE, SELFPAY ==
[2023-05-29 12:00] LABS: Add Manual Diff / Slide Review NO; Basophils Absolute Auto 100 /uL (0-100); Basophils Percent Auto 0.8 % (0-2); Eosinophils Absolute Auto 200 /uL (0-450); Eosinophils Percent Auto 2.6 % (2-4); Hematocrit 42.7 % (41-53); Hemoglobin 14.3 g/dL (13.5-17.5); Lymphocytes Absolute Auto 2700 /uL (1100-4500); Lymphocytes Percent Auto 35.7 % (25-40); Mean Corpuscular HGB Conc 33.5 % (30-36); Mean Corpuscular Hemoglobin 28.5 PG (26-34); Monocytes Absolute Auto 500 /uL (0-900); Monocytes Percent Auto 6.8 % (3-14); Neutrophils Absolute Auto 4100 /uL (1500-7000); Neutrophils Percent Auto 54.1 % (50-75); Platelet Count 316 X10^3/uL (150-400); Red Blood Cell Count 5.02 X10^6/uL (4.5-5.9); Red Cell Distribution Width 14.3 % (11.6-14.8); White Blood Cell Count 7.5 X10^3/uL (4.5-11.0)
[2023-05-29 12:28] LABS: Appearance Urine UA CLEAR; Bilirubin Urine UA NEGATIVE (NEGATIVE); Color Urine UA YELLOW; Glucose Urine UA 3+ g/dL (Negative); Ketones Urine UA NEGATIVE (NEGATIVE); Leukocyte Esterase Urine UA NEGATIVE (NEGATIVE); Nitrite Urine UA NEGATIVE (Negative); Occult Blood Urine UA NEGATIVE (Negative); Protein Urine UA NEGATIVE (Negative); Specific Gravity Urine UA 1.015 (1.000-1.035); Urobilinogen Urine UA 0.2 E.U./dL (0.2)
[2023-05-29 12:31] LABS: BUN Creatinine Ratio 18.7 (6-22); Blood Urea Nitrogen 17 mg/dL (9-20); Calcium 9.2 mg/dL (8.4-10.2); Carbon Dioxide 25 mmol/L (22-32); Chloride 102 mmol/L (98-107); Estimated Glomerular Filt Rate > 60 mL/min (>60); Glucose 196 mg/dL (80-110); HEMOLYSIS < 15 (0-50); Potassium 4.8 mmol/L (3.4-5.1); Sodium 136 mmol/L (137-145)
[2023-05-29 12:46] LABS: Bacteria Urine None Seen; Culture Indicated Urine Cult Not Indicated; RBC Urine None Seen (0-5/HPF); Squamous Epithelial Cell Urine None Seen (0-5/HPF); Urine Volume 10mL (spun); WBC Urine None Seen (0-5/HPF)
[2023-05-30 07:27] LABS: x Labcorp Estim. Avg Glu (eAG) 180 mg/dL (.); x Labcorp Hemoglobin A1c 7.9 % (4.8-5.6)
== END ==
LOC: LAB 11:26
PROVIDERS: Family Provider Family Medicine; PCP Family Medicine; Referring Provider Orthopaedic Surgery; Visit Provider Orthopaedic Surgery
DX: Z01.812 Encounter for preprocedural laboratory examination (principal); R73.9 Hyperglycemia, unspecified; N39.0 Urinary tract infection, site not specified
CPT/HCPCS: 36415; 80048; 81001; 83036; 85025; 93005; 93010

== ENCOUNTER → 2023-07-10 11:57 | Outpatient (CLI) | payer MEDICARE, SELFPAY ==
[2023-07-10 15:12] LABS: Alanine Aminotransferase 24 IU/L (<50); Albumin 4.1 g/dL (3.5-5.0); Albumin Globulin Ratio 1.5 (1.0-2.8); Alkaline Phosphatase 67 U/L (38-126); Aspartate Aminotransferase 26 IU/L (17-59); BUN Creatinine Ratio 18.9 (6-22); Bilirubin Total 0.6 mg/dL (0.2-1.3); Blood Urea Nitrogen 18 mg/dL (9-20); Calcium 9.4 mg/dL (8.4-10.2); Carbon Dioxide 27 mmol/L (22-32); Chloride 106 mmol/L (98-107); Estimated Glomerular Filt Rate > 60 mL/min (>60); Globulin 2.8 g/dL (1.7-4.1); Glucose 99 mg/dL (80-110); HEMOLYSIS < 15 (0-50); Potassium 4.8 mmol/L (3.4-5.1); Sodium 138 mmol/L (137-145); Total Protein 6.9 g/dL (6.3-8.2)
[2023-07-10 15:14] LABS: Hemoglobin A1C% w Est Avg Glu 7.3 % (4.0-6.0)
== END ==
PROVIDERS: Family Provider Family Medicine; PCP Family Medicine; Referring Provider Orthopaedic Surgery; Visit Provider Orthopaedic Surgery
DX: R73.9 Hyperglycemia, unspecified (principal); E11.9 Type 2 diabetes mellitus without complications; E03.9 Hypothyroidism, unspecified
CPT/HCPCS: 36415; 80053; 83036

== ENCOUNTER 2023-08-03 06:07 | Day surgery (SDC) | payer MEDICARE, SELFPAY ==
[2023-07-24 09:44] VITALS: BMI 25.1
[2023-08-03] VITALS (8 sets, daily range): BP systolic 111–153; BP diastolic 68–86; PULSE 81–96; RESP 11–20; TEMP 36.6–36.8; O2SAT 91–98; BMI 25.1
--- NOTE | 2023-08-03 | DI.RAD.S_ITS ---
PROCEDURE: XR HIP W PEL IF DONE RT 2V INDICATIONS: TOTAL HIP TECHNIQUE: AP pelvis with lateral view(s) of the right hip(s). COMPARISON: [facility], GIOVANNA, XR HIP W PEL IF DONE RT 2V, 08/25/2022, 16:28. [facility], GIOVANNA, XR HIP W PEL IF DONE STUART 3TO4V, 05/24/2022, 13:06. FINDINGS: Right hip arthroplasty. Arthroplasty projects in the expected location. No fracture identified. IMPRESSION: Intraoperative guidance provided. Dictated by: Eduard Chappell M.D. on 08/04/2023 at 1:01 Approved by: Eduard Chappell M.D. on 08/04/2023 at 1:02
--- NOTE | 2023-08-03 06:00 | DI.RAD.S_ITS ---
PROCEDURE: XR HIP W PEL IF DONE RT 2V INDICATIONS: post-op TECHNIQUE: 2 view(s) of the hip acquired. COMPARISON: [facility], GIOVANNA, XR HIP W PEL IF DONE RT 2V, 08/03/2023, 9:43. FINDINGS: Bones: Patient is status post right hip arthroplasty, with hardware components in expected positions. The hip joint appears congruent. The visualized bony structures appear intact. Soft tissues: Overlying postoperative changes are noted. No suspicious soft tissue densities. IMPRESSION: Expected post-operative appearance of a hip arthroplasty. Dictated by: Kathleen Serrano M.D. on 08/03/2023 at 16:49 Approved by: Kathleen Serrano M.D. on 08/03/2023 at 16:49
[2023-08-03] MEDS: VANCOMYCIN 1,000 MG/200 ML PIGGYBACK 200 MG IV (06:37)
[2023-08-03] MEDS: ACETAMINOPHEN 325 MG TABLET 975 MG PO (06:38)
--- NOTE | 2023-08-03 07:12 | P.OP_ITS ---
Operative Date/Time/Diagnoses Date of procedure: 08/03/23 Time of procedure: 07:50 Pre-op diagnosis: right hip OA Post-op diagnosis: same Procedure & Clinicians Procedure: Right total hip arthroplasty anterior approach Same procedure as scheduled: Yes Indications: The patient has had progressively worsening right hip pain with radiographic c hanges consistent with arthritis. Non-operative management has failed and the patient has requested total hip replacement. The risks, benefits and alternatives to surgery were discussed with the patient prior to proceeding. Risks discussed included, but were not limited to, failure to relieve pain, leg length discrepancy, dislocation, stiffness, infection, nerve damage, deep venous thrombosis, pulmonary embolism, stroke, coma, heart attack, permanent paralysis and , as well as the potential need for eventual revision of the prosthetic. Surgeon: Keila Patel Flower Machine Operator: Del Salazar Anesthesia Type: General and Spinal Operative Notes Findings: Severe right hip OA, adequate stability, adequate bone Closure Type: primary Specimen(s): none sent Prosthetic devices, grafts, tissues, transplants, or devices: [employer] R3 56, polar stem size 2 standard offset with collar, neutral poly liner, one 6.5 mm screw, 36 x +0 cobalt chrome Estimated Blood Loss (mL): 250 Blood products transfused: none Procedure in detail: The patient was brought to the operating room. Patient was carefully positioned in the supine position. Time-out was performed and antibiotics were given. Anesthesia was induced. He was positioned in the OR on the table in order to allow hyperextension of the hip. The right lower extremity was prepped and draped in a standard sterile fashion. An anterior right hip incision was made 1 fingerbreadth lateral to the anterior superior iliac spine and extended distally towards the greater trochanter. Dissection was carried out through skin and subcutaneous tissues. Superficial hemostasis was achieved. The fascia over the tensor fascia oh was defined and incised with a knife. Two Allis clamps were used to grasp the fascia. Tensor fascia oh was retracted laterally. A gelpi retractor was placed. Dissection was carried out down along the neck. The circumflex vessels were carefully identified and cauterized with the Aqua Mantis. There was good visualization of the femoral neck. A Cobra was placed superior to the neck and the gluteus fibers were carefully stripped from that superior aspect of the capsule. A 2nd retractor was placed along the inferior aspect of the neck. The rectus insertion along the capsule was partially released. A 3rd retractor that was then gently placed over the rim of the acetabulum under the rectus. Capsule was carefully incised and released from the intertrochanteric line circumferentially superior to the mid sagittal line and inferiorly to the mid sagittal line until the lesser trochanter was palpable. A tag stitch was placed both in the superior and inferior limb of the capsular insertion. Along the acetabulum capsule was also released up to the mid sagittal 12:00 position. A portion of the labrum was resected. A saw was used to perform an osteotomy at the level of the intertrochanteric line and the junction of the superior femoral neck leaving approximately 1 finger breath of residual inferior neck above the lesser trochanter. A 2nd cut was made along the femoral neck at the base of the head and a napkin ring of neck was removed. Corkscrew was placed in the femoral head and the head was removed without difficulty. Retractors were then repositioned around the acetabulum. Residual labrum was resected and additional osteophytes were removed. A reamer that was 4 mm below the templated size was placed by hand in the acetabulum and it was reamed to centralize the acetabulum. It was then reamed up to 2 under the templated size and fluoroscopy was brought in to confirm the position of the reaming and depth of reaming. I reamed 1 under the anticipated size. A trial cup was placed and noted that it was appropriately sized and fluoroscopy confirmed position and depth. The component was open and inserted without difficulty fluoroscopic imaging was used to confirm that the cup had been adequately seated and was well positioned. It was further stabilized with a single screw. Neutral poly liner was placed. The cup was tested and noted to be stable. Attention was then directed to the femur. The femur was gently hyperextended additional capsular release was performed as needed in order to allow adequate visualization of the proximal femur with elevation of the femur. Patient was placed in a hyperextended slightly adducted position with maximum external rotation. Box osteotome was used to check for any residual neck as well as sclerotic bone along the trochanter. [place] pepper was placed in the femur. Additional broaching was performed. Canal finder was used to determine the alignment of the canal and position. Size 1 broach was placed. The canal was then appropriately broached up to the templated size as long as there was adequate stability of the broach and serial advancement of the broach without excessive impingement. Specific attention was directed at avoiding varus attempting to direct the distal aspect of the broach more anteriorly and avoiding excessive anteversion. Trial reduction showed acceptable range of motion, good stability, no posterior impingement, nondenominational of leg length and appropriate lateral shuck. I also hyperflexed the hip and checked that there was no impingement anteriorly and there was good stability with flexion, adduction and internal rotation. Marcaine and Exparel were injected. The stem was placed without difficulty. Repeat trial reduction and x-ray showed acceptable overall position, length, and no evidence of the femoral fracture. Final head was placed. Wound was meticulously irrigated with normal saline. The hip was reduced and additional Exparel and Marcaine were injected. The capsule was closed with interrupted nonabsorbable sutures. The fascia of the tensor was closed with interrupted and running Vicryl. No drain was placed. Any tensor fascia oh muscle that appeared to be contused or injured which was a minimal amount was carefully resected. Capsule around the tensor was injected with Exparel and Marcaine. The skin was closed with barbed stitches for the subcutaneous tissue and skin. We also used surgical glue. The wound was dressed sterilely. Brief Betadine soak was also used and was meticulously irrigated with normal saline. Patient was transferred to recovery room in satisfactory condition. Complications: none Post-operative Condition: stable Disposition: Acute Care Plan for aftercare: The patient will be maintained on a standard total hip replacement protocol with weight bearing as tolerated and anterior hip precautions. The patient will receive Aspirin and sequential compression devices for DVT prophylaxis. The patient will be discharged home when safe for the home environment.
--- NOTE | 2023-08-03 07:12 | PM.PREOP ---
Pre-operative Note Interval Note History & Physical reviewed/Exam performed by Physician: Yes Changes to H&P: No
[2023-08-03] MEDS: LACTATED RINGERS 1,000 ML 42 ML IV (07:16)
--- NOTE | 2023-08-03 08:38 | SUR.OPER ---
Patient supine on padded [place] table, one arm on padded arm board at <90, other arm padded and secured with tape across patient's chest, both legs secured in padded traction boots and positioned per surgeon, padded post at patient's groin, pressure points checked and padded.
[2023-08-03] MEDS: BUPIVACAINE LIPOSOME 266 MG/20 ML VIAL INJ (09:01)
[2023-08-03] MEDS: BUPIVACAINE 0.25% (PF) VIAL 30 ML INJ ×2 (09:06→09:10)
[2023-08-03] MEDS: EPINEPHrine 1 MG/ML 0.15 MG INJ (09:10)
[2023-08-03] MEDS: LACTATED RINGERS 1,000 ML 120 ML IV (09:26)
[2023-08-03] MEDS: OXYCODONE IR 5 MG TABLET PO ×2 (11:33→15:17)
[2023-08-03] MEDS: LACTATED RINGERS 1,000 ML 100 ML IV (11:37)
[2023-08-03] MEDS: OXYCODONE IR 10 MG TABLET PO ×2 (12:41→16:06)
--- NOTE | 2023-08-03 12:43 | PT.IIE ---
Current Diagnoses Unilateral primary osteoarthritis, right hip (08/03/23) Surgery Performed Operation Date: 08/03/23 07:45 <No data on this case meets the specified criteria> Surgical History (Last Updated 07/24/23 @ 10:11 by Julia Rivas RN) Anesthesia History of orthopedic surgery History of prostatectomy (~2003) History of thyroidectomy (~2000) Hx of hernia repair (~1999) Hx of parathyroidectomy (~2005) Hx of right cataract extraction Tibia/fibula fracture (~11/1969) Medical History (Last Updated 07/24/23 @ 14:11 by Homer Xavier MD) Allergies Chest discomfort Chicken pox (~1951) Chronic right hip pain Diabetes mellitus Fractures Gout Graves disease (~1987) Hearing impaired History of elevated PSA (~2003) HTN (hypertension) Hx of fracture of rib Hyperlipidemia Hypertension Hypothyroidism (~1987) Measles (~1952) Mumps (~1951) Palpitations Prostate cancer (~2003) Tinnitus (~1986) Uses self-applied continuous glucose monitoring device Physical Therapy Inpatient Evaluation/Re-Eval M1 PT/OT-IP Prior Functional Status Start: 08/03/23 11:42 Freq: NEEDED Status: Active Protocol: Document 08/03/23 11:42 MB (Rec: 08/03/23 12:42 MB [id number]) Medical Review Prior Functional Status Medical History Reviewed Yes Diet/Fluid Consistency Regular Communication WNLs Mobility and Gait I, 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 PT-IP Current Condition Start: 08/03/23 11:42 Freq: NEEDED Status: Active Protocol: Document 08/03/23 11:42 MB (Rec: 08/03/23 12:42 MB [id number]) Physical Therapy Current Condition Current Condition Evaluation Date 08/03/23 Treatment Diagnosis Right anterior COBY M3 PT-IP Subjective Start: 08/03/23 11:42 Freq: NEEDED Status: Active Protocol: Document 08/03/23 11:42 MB (Rec: 04/18/24 12:42 MB [id number]) Subjective Physical Therapy Visit Type Type Initial Evaluation Visit Start Time 11:42 Visit Stop Time 12:17 Number of ROLLING MILL OPERATOR HELPER Visits 0 Physical Therapy Visit Comments Patient Comments Pt is agreeable to PT Therapy Pain Assessment Pain When Pain Assessed At Rest Pain Present Pain Present Pain Reported Location Right Hip Intensity 5 Scale Used Numeric (0 - 10) M4 PT-IP Mobility and Gait Start: 08/03/23 11:42 Freq: NEEDED Status: Active Protocol: Document 08/03/23 11:42 MB (Rec: 08/03/23 12:42 MB [id number]) PT-Bed Mobility Assessment Supine to Sit Supine to Sit Contact Guard Assistance,1 Person Assistance Scooting Scooting to Edge of Bed Contact Guard Assistance Scooting Up and Down in Bed Contact Guard Assistance PT-Transfer Assessment Sit to and From Stand Sit to and from Stand Contact Guard Assistance,1 Person Assistance Equipment Transfer Assistive Device Gait Belt,Front Wheeled Walker Orthotic/Prosthetic Devices or Brace: No Transfers Transfer Destination Chair Transfer Technique Stepping with walker Transfer Ability Level of Assist Minimal Assistance,1 Person Assistance Comments Mobility Comments Pt hook lying upon arrival, alert and oriented and agreeable to PT. PT clears with nsg and pt's pain is 5/10 in right hip. Pt moves well to EOB and PT attempts to get orthostatics but as pt moves, copious amounts of urinary incontinence occurs and PT encourages pt to sit back down . PT begins to assist with cleaning up and then tried standing again and then copious amounts of urinary incontinence happen again. BP and HR in right UE are 148/80, 80 in supine and then BP increases after second check, likely d/t pt is fairly distressed that he cannot feel his jeannie area and is not able to tell that he is incontinent. Pt requires min A and RW to get to chair and after second incontinence, brief donned and pt still with some incontinence: IV still running. PT is unable to advance gait distance and stair training d/t incontinence, otherwise mobility is good post-op Gait Assessment Gait Gait Assistance Required: Minimum Assistance Distance (Feet) 1 Able to Maintain Weight Bearing Status Yes During Gait Assistive Devices Assistive Device Gait Belt,Front Wheeled Walker Orthotic/Prosthetic Devices or Brace: No Gait Deviations General Gait Pattern Decreased Stride Length, Decreased Feet Clearance, Flexed Trunk,Step-to Gait,Wide Based Gait Factors Limiting Gait Function Factors Limiting Gait Function Decreased Activity Tolerance, Incoordination,Pain,Poor Balance,Poor Safety Awareness Comments Gait Comments Pt somewhat distressed about urinary incontinence and having a challenging time following commands for safety for sitting and standing ( standing up on his own) and so ongoing PT cues and assistance for mobility, limited gait distance d/t incontinence PT-Balance Assessment Sitting Balance and Reactions Static Sitting Balance Ability Normal Dynamic Sitting Balance Ability Good Standing Balance and Reactions Static Standing Balance Ability Good Dynamic Standing Balance Ability Fair Device Used RW M5 PT-IP Objective Assessments Start: 08/03/23 11:42 Freq: NEEDED Status: Active Protocol: Document 08/03/23 11:42 MB (Rec: 08/03/23 12:42 MB [id number]) Orientation Orientation/Cognition Level of Alertness Alert Orientation Name,Age,Birthday,Month,Date, Year,Day of Week,Place, Situation Language Function Ability No Deficits Noted Safety Awareness Decreased Safety Awareness Memory Description No Deficits Noted Gross Range of Motion Upper Extremity ROM Impairments Defer to OT Lower Extremity ROM Assessment Right Impaired Impairments Right hip post-op, otherwise functional Strength Comments Strength Comments See ROM comments above M6 PT-IP Treatment Start: 08/03/23 11:42 Freq: NEEDED Status: Active Protocol: Document 08/03/23 11:42 MB (Rec: 08/03/23 12:42 MB [id number]) Physical Therapy Treatment Education Education Provided Precautions,Weight Bearing Status,Post-Op Packet,Safety M7 PT-IP Assessment and Plan Start: 08/03/23 11:42 Freq: NEEDED Status: Active Protocol: Document 08/03/23 11:42 MB (Rec: 08/03/23 12:42 MB [id number]) PT Summary Assessment and Plan Potential Rehabilitation Potential Good Status of Condition at Evaluation Evolving Summary Impairments Pain,ROM,Strength,Balance,Bed Mobility,Transfers,Gait, Activity Tolerance Progress Towards Goals Slow Progress - Other Assessment Summary Pt A&O and pain 5/10 post-op and he is agreeable to PT. With attempted sit to stand, copious amounts of urinary incontinence occurs and PT encourages pt to sit back down . PT begins to assist with cleaning up and then tried standing again and then copious amounts of urinary incontinence happen again. BP and HR in right UE are 148/80, 80 in supine and then BP increases after second check, likely d/t pt is fairly distressed that he cannot feel his jeannie area and is not able to tell that he is incontinent. Pt requires min A and RW to get to chair and after second incontinence, brief donned and pt still with some incontinence: IV still running. PT is unable to advance gait distance and stair training d/t incontinence, otherwise mobility is good post-op. Con' t PT efforts as appropriate and as continence managed for longer gait distance out side of room and stair training. Pt 's nearby for assessment and she will be able to assist him at home. Goals Bed Mobility Goal Independent Transfer Goal Independent,Front Wheeled Walker Gait Goal Independent,Front Wheel Walker Gait Distance 100 Other Goals Pt will ascend and descend 3 steps with rail and no more than CGA to allow safe home entrance. Days to Meet Goals 3 Frequency of Treatment Frequency Of Treatment Twice a Day Treatment Plan Physical Therapy Treatment Plan Bed Mobility Training,Transfer Training,Gait Training, Therapeutic Exercise,Balance Retraining,Post Op Education, Discharge Planning,Hot or Cold Pack,Neuromuscular Re-ed, Coordination Retraining,Manual Therapy Precautions Anterior Hip Precautions No Hip Extension,No Hip External Rotation Weight Bearing Status Weight Bearing Status Weight Bear as Tolerated Recommendations To Nursing Amount of Assist Needed 2 Person Assist Discharge Recommendations PT Discharge Recommendations Home with 07/11 Assist Available,Outpatient PT Transportation Needs at Discharge Private Vehicle
--- NOTE | 2023-08-03 14:12 | OT.IP.EVAL ---
Current Diagnoses Unilateral primary osteoarthritis, right hip (08/03/23) Surgery Performed Operation Date: 08/03/23 07:45 <No data on this case meets the specified criteria> Past Medical History (Last Updated 07/24/23 @ 14:11 by Homer Xavier MD) Allergies Chest discomfort Chicken pox (~1951) Chronic right hip pain Diabetes mellitus Fractures Gout Graves disease (~1987) Hearing impaired History of elevated PSA (~2003) HTN (hypertension) Hx of fracture of rib Hyperlipidemia Hypertension Hypothyroidism (~1987) Measles (~1952) Mumps (~1951) Palpitations Prostate cancer (~2003) Tinnitus (~1986) Uses self-applied continuous glucose monitoring device Surgical History (Last Updated 07/24/23 @ 10:11 by Julia Rivas RN) Anesthesia History of orthopedic surgery History of prostatectomy (~2003) History of thyroidectomy (~2000) Hx of hernia repair (~1999) Hx of parathyroidectomy (~2005) Hx of right cataract extraction Tibia/fibula fracture (~11/1969) Occupational Therapy Inpatient Evaluation/Re-Eval M1 PT/OT-IP Prior Functional Status Start: 08/03/23 14:15 Freq: NEEDED Status: Active Protocol: Document 08/03/23 14:15 [facility] (Rec: 08/03/23 14:28 [facility] [id number]) Medical Review Prior Functional Status Medical History Reviewed Yes Diet/Fluid Consistency Regular Communication WNLs Mobility and Gait I, 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 Social History Household Members spouse Living Arrangements House Number of Floors (Floors) 3 or More Floors Number of Stairs To Enter/Railing? 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 OT-IP Current Condition Start: 08/03/23 14:15 Freq: Status: Active Protocol: Document 08/03/23 14:15 [facility] (Rec: 08/03/23 14:28 [facility] [id number]) Occupational Therapy Current Condition Current Condition Evaluation Date 08/03/23 Treatment Diagnosis S/P Right COBY -anterior approach Diagnosis Onset Date 08/03/23 Post Operative Precautions Anterior Hip Precautions No Hip Extension,No Hip External Rotation M3 OT- IP Subjective and Pain Start: 08/03/23 14:15 Freq: Status: Active Protocol: Document 08/03/23 14:15 [facility] (Rec: 08/03/23 14:28 [facility] [id number]) OT- Subjective Occupational Therapy Visit Type Type Initial Evaluation Visit Start Time 13:55 Visit Stop Time 14:12 Occupational Therapy Visit Comments Patient Comments Pt agreed to get up for OT. Patient/Caregiver Goals TO go home. OT Pain Assessment Pain When Pain Assessed At Rest Pain Present Pain Present Pain Reported Location Right Hip Intensity 6 Scale Used Numeric (0 - 10) M4 OT- IP ADL's Start: 08/03/23 14:15 Freq: Status: Active Protocol: Document 08/03/23 14:15 [facility] (Rec: 08/03/23 14:28 [facility] [id number]) OT K[facility]-Acda-Gciil[facility] General Evaluation Self-Feeding Ability Independent OT ADL-Grooming Comments OT Grooming Comments Pt not wanting to do. OT ADL-Oral Care Comments Oral Care Comments Not performed. OT ADL-Dressing Comments OT Dressing Comments Pt states to do later. Educated not to cross his RLE for dressing needs and best to use LB dressing equipment or assist from his . Able to show pt equipment but pt not interested to try at this time as insists his to help. OT ADL-Toileting Comments OT Toileting Comments Pt states has no feeling in jeannie area. Educated use of urinal at night and to be mindful of his RLE positioning during ADL needs. OT ADL-Bathing Comments OT Bathing Comments Suggested pt get a shower chair, pt insists that he will be fine without. Pt has no grab bars in the shower. M5 OT- IP IADL's Start: 08/03/23 14:15 Freq: Status: Active Protocol: Document 08/03/23 14:15 [facility] (Rec: 08/03/23 14:28 [facility] [id number]) OT-Instrumental Activities of Daily Living Deficits IADL Deficits Identified Deficits Home Safety Awareness Home Safety Comments Pt insists that he will be fine and feels his will be able to assist him for all his needs. Medication Management Medication Management Comments Pt will benefit from assist as a little groggy at this time. Money Management Money Management Caregiver Provides Assistance Meal Preparation Meal Preparation Caregiver Provides Assist Seamless Tube Roller Seamless Tube Roller Caregiver Provides Assist M6 OT- IP Functional Cognition Start: 08/03/23 14:15 Freq: Status: Active Protocol: Document 08/03/23 14:15 [facility] (Rec: 08/03/23 14:28 [facility] [id number]) Cognitive Factors Limiting Selfcare Function Cognitive Ability Level of Alertness Alert Patient Orientation Name,Age,Birthday,Month,Date, Year,Day of Week,Place, Situation Attention Span Ability Capable of Focused Attention, Capable of Sustained Attention Ability to Follow Commands Able to Follow Multi-Step Commands Safety Awareness Underestimates Need for Assistance Cognitive Comments Cognitive Assessment Comments Pt able to state all his precautions and increased time to incorporate when up on his feet. OT- Vision and Hearing OT- Hearing Assessment OT- Hearing Assessment Hearing Impaired,Use of Hearing Aids OT- Vision Assessment Visual Acuity WFL Visual Attentiveness WFL Occular Pursuits WFL M7 OT- IP Mobility and Balance Start: 08/03/23 14:15 Freq: Status: Active Protocol: Document 08/03/23 14:15 [facility] (Rec: 08/03/23 14:28 [facility] [id number]) OT-Transfer Assessment Sit to and From Stand Sit to and from Stand Standby Assistance Transfers Transfer Ability Contact Guard Assistance Technique Transfer Destination Chair Transfer Technique Stand Step Pivot Devices Transfer Assistive Devices Gait Belt,Front Wheeled Walker Comments Mobility Comments Pt SBA to stand and a little unsteady on his feet and needing CGA for a brief moment . Pt not wanting to do stairs and states has already practice in his pre-PT appoint ment yesterday. Pt just focused on going home. OT- Balance Assessment Sitting Balance and Reactions Static Sitting Balance Ability Normal Dynamic Sitting Balance Ability Good Standing Balance and Reactions Static Standing Balance Ability Good Dynamic Standing Balance Ability Fair M8 OT- IP Objective Assessments Start: 08/03/23 14:15 Freq: Status: Active Protocol: Document 08/03/23 14:15 [facility] (Rec: 08/03/23 14:28 [facility] [id number]) OT Gross Range of Motion Upper Extremity Range of Motion Assessment Within Functional Limits OT Strength Comments Strength Comments WFL for needs. M9 OT- IP Assessment and Plan Start: 08/03/23 14:15 Freq: Status: Active Protocol: Document 08/03/23 14:15 [facility] (Rec: 08/03/23 14:28 [facility] [id number]) OT Summary Assessment and Plan Potential Rehabilitation Potential Good Analytic Complexity at Evaluation Low Summary OT Impairments Pain,Strength,Balance, Functional Mobility,Dressing, Toileting,Bathing,Toilet Transfers,Shower Transfers, Activity Tolerance Progress Towards Goals Progressing Toward Goals Assessment Summary Pt low complexity and main barriers are step , a little unsteady on his feet and needing reminders to incorporate his anterior precautions for his needs. Pt states has a supportive to assist with his needs at home. Pt to go home when medically stable and attend outpt PT. Goals Grooming Goal Independent Dressing Goal Minimal Assistance Toileting Goal Independent Bathing Goal Standby Assistance Toilet Transfer Goal Independent Shower Transfer Goal Standby Assistance Days to Meet Goals 3 Frequency of Treatment Frequency Of Treatment Once a Day Treatment Plan OT Treatment Plan ADL Training,Functional Mobility,Patient/Family Education,Discharge Planning Other Treatment Recommendations and Next Go over equipment options as pt insistent does not need any Treatment Focus Discharge Recommendations OT Discharge Recommendations Home with 24/7 Assist Available,Outpatient PT Home Equipment Needs shower chair, LB dressing equipment Transportation Needs at Discharge Private Vehicle
--- NOTE | 2023-08-03 15:29 | PT.IPTN ---
Current Diagnoses Unilateral primary osteoarthritis, right hip (08/03/23) Surgery Performed Operation Date: 08/03/23 07:45 <No data on this case meets the specified criteria> Physical Therapy Treatment Note M2 PT-IP Current Condition Start: 08/03/23 11:42 Freq: NEEDED Status: Active Protocol: Document 08/03/23 14:55 SP (Rec: 08/03/23 15:51 SP [id number]) Physical Therapy Current Condition Current Condition Evaluation Date 08/03/23 Treatment Diagnosis Right anterior COBY M3 PT-IP Subjective Start: 08/03/23 11:42 Freq: NEEDED Status: Active Protocol: Document 08/03/23 14:55 SP (Rec: 08/03/23 15:51 SP [id number]) Subjective Physical Therapy Visit Type Type Treatment Note Visit Start Time 14:55 Visit Stop Time 15:29 Notes completed CGT including assist as needed throughout tx . Number of INTERNATIONAL RECRUITER Visits 1 Physical Therapy Visit Comments Patient Comments Pt is agreeable to PT, reports still unable to feel pericare area, is wearing depends given by nursing earlier for support assist. Therapy Pain Assessment Location Right Hip Intensity 5 Scale Used resting, less 4/10 with mobility Description Aching,Dull,With Movement Pain Management Techniques Apply Cold,Distraction,Re- positioning M4 PT-IP Mobility and Gait Start: 08/03/23 11:42 Freq: NEEDED Status: Active Protocol: Document 08/03/23 14:55 SP (Rec: 08/03/23 15:51 SP [id number]) PT-Transfer Assessment Sit to and From Stand Sit to and from Stand Standby Assistance,Use of Upper Extremities Equipment Transfer Assistive Device Gait Belt,Front Wheeled Walker Orthotic/Prosthetic Devices or Brace: No Transfers Transfer Destination Chair Transfer Technique pt ambulated with FWW Transfer Ability Level of Assist Standby Assistance,Contact Guard Assistance,Use of Upper Extremities Comments Mobility Comments Pt up in chair when arrived, complete post op ex under instruction of INTERNATIONAL RECRUITER reviewed, provided strap on R foot for support heel slide support less discomfort anterior R hip , unable to complete glut squeeze due to not being able feel buttocks or pericare area yet, notified nursing to let physician aware. STS SBA to FWW use BUE on chair arms for self support, gait around room and into hallway approx 200 ft x2 /c FWW, cues for R knee bend and heel toe for normalizing gait phase and not large step LLE to maintain no hip ext on R precaution. Pt able to ascend/descend stairs step to patterning, CGA use gait belt cues as needed for her positioning pt very stable only needed L HR asc, very stable. Occasional cue for marching step and maintain no ER RLE with supportive to pt throughout tx and able to help him home. Pt is ableto return home when medically cleared. Outpatient therapy set up for next week. Good understanding HEP and cue supportive. Gait Assessment Gait Gait Assistance Required: Standby Assistance Distance (Feet) 400 Able to Maintain Weight Bearing Status Yes During Gait Assistive Devices Assistive Device Gait Belt,Front Wheeled Walker Orthotic/Prosthetic Devices or Brace: No Gait Deviations General Gait Pattern Antalgic Factors Limiting Gait Function Factors Limiting Gait Function Decreased Activity Tolerance, Decreased Strength,Pain Comments Gait Comments Occasional (x1) cues for reduction stride on LLE, marching steps maintain no ER on R, slower pacing gait for safety and hip/knee flexion/DF RLE during swing phase normalizing, improved all post cues. Stair Climbing Assessment Evaluation Level of Assist On Stairs Standby Assistance,Contact Guard Assistance Devices Stair Climbing Assistive Devices Straight Cane,Left Railing Technique/Endurance Stair Climbing Direction Ascend and Descend Stair Climbing Technique Step to Step Number of Steps Climbed 4 Stair Climbing Set # Repetitions (reps) 2 Comments Stair Climbing Comments see mobility comments PT-Balance Assessment Sitting Balance and Reactions Static Sitting Balance Ability Normal Dynamic Sitting Balance Ability Normal Standing Balance and Reactions Static Standing Balance Ability Good Dynamic Standing Balance Ability Good Device Used FWW M5 PT-IP Objective Assessments Start: 08/03/23 11:42 Freq: NEEDED Status: Active Protocol: Document 08/03/23 11:42 MB (Rec: 08/03/23 12:42 MB [id number]) Orientation Orientation/Cognition Level of Alertness Alert Orientation Name,Age,Birthday,Month,Date, Year,Day of Week,Place, Situation Language Function Ability No Deficits Noted Safety Awareness Decreased Safety Awareness Memory Description No Deficits Noted Gross Range of Motion Upper Extremity ROM Impairments Defer to OT Lower Extremity ROM Assessment Right Impaired Impairments Right hip post-op, otherwise functional Strength Comments Strength Comments See ROM comments above M6 PT-IP Treatment Start: 08/03/23 11:42 Freq: NEEDED Status: Active Protocol: Document 08/03/23 14:55 SP (Rec: 08/03/23 15:51 SP [id number]) Physical Therapy Treatment Exercises Exercises Ankle Pumps,Gluteal Sets,Quad Sets,Heel Slides Education Education Provided Precautions,Weight Bearing Status,Post-Op Packet,Safety Other Treatments Other Treatment Performed good recall pt and to precautions, occ cues maintain during gait/pivots M7 PT-IP Assessment and Plan Start: 08/03/23 11:42 Freq: NEEDED Status: Active Protocol: Document 08/03/23 14:55 SP (Rec: 08/03/23 15:51 SP [id number]) PT Summary Assessment and Plan Potential Rehabilitation Potential Good Status of Condition at Evaluation Evolving Summary Impairments Pain,ROM,Strength,Balance,Bed Mobility,Transfers,Gait, Activity Tolerance Progress Towards Goals Progressing Toward Goals,Slow Progress due to Medical Issues Assessment Summary Pt progressing SBA during all mobility, occ cues for maintaining precautions during mobility, slower pacing gait /c FWW. Was ableto increase gait 400 ft to stairs, complete stairs needed for home with stable step to patterning. Pt continues report no pericare sensation but as gait progressed could feel buttocks some. INTERNATIONAL RECRUITER notified nursing and will be reassessed. Pt is ok to return home with when medically cleared, outpt PT set up and good understanding HEP in meantime. home assist him SBA needed, completed CGT. Goals Bed Mobility Goal Independent Transfer Goal Independent,Front Wheeled Walker Gait Goal Independent,Front Wheel Walker Gait Distance 100 Other Goals Pt will ascend and descend 3 steps with rail and no more than CGA to allow safe home entrance. Days to Meet Goals 3 Frequency of Treatment Frequency Of Treatment Twice a Day Treatment Plan Physical Therapy Treatment Plan Bed Mobility Training,Transfer Training,Gait Training, Therapeutic Exercise,Balance Retraining,Post Op Education, Discharge Planning,Hot or Cold Pack,Neuromuscular Re-ed, Coordination Retraining,Manual Therapy Other Recommendations and Next Treatment standing balance activities, Focus kegel ex if able, gait LRAD, trial SPC. Precautions Anterior Hip Precautions No Hip Extension,No Hip External Rotation Weight Bearing Status Weight Bearing Status Weight Bear as Tolerated Recommendations To Nursing Amount of Assist Needed Standby Assistance Discharge Recommendations PT Discharge Recommendations Home with 07/11 Assist Available,Outpatient PT Transportation Needs at Discharge Private Vehicle
[2023-08-03] MEDS: IBUPROFEN 400 MG TABLET PO (16:06)
[2023-08-03] MEDS: CEFAZOLIN 2 GM/100 ML PREMIX 100 ML IV (16:09)
--- NOTE | 2023-08-03 17:38 | PC.NURSE ---
VSS. Pt and pt's verbalized understanding of D/C instructions when to follow up with surgeon, how to take all medications and when to resume home medications. All questions answered at the time of discharge. Pt A&Ox4. Pt had sensation back in his R hip upon discharge.
== END 2023-08-03 16:55 | disposition home or self-care (01) ==
LOC: OR 06:07 → AC 10:13
PROVIDERS: Family Provider Family Medicine; PCP Family Medicine; Referring Provider Orthopaedic Surgery; Visit Provider Orthopaedic Surgery
PROC: (CPT 27130; principal; 2023-08-03 07:45)
DX: M16.11 Unilateral primary osteoarthritis, right hip (principal); M25.751 Osteophyte, right hip
CPT/HCPCS: 27130; 73502; 76000; 82962; 97116; 97161; 97165; 97530; C1776; C9290; J0171; J0690; J1170; J2250; J2704; J3010

== ENCOUNTER → 2023-12-06 13:38 | Outpatient (CLI) | payer MEDICARE, SELFPAY ==
[2023-08-03 11:07] VITALS: BMI 25.1
[2023-12-06 16:12] LABS: Alanine Aminotransferase 16 IU/L (<50); Albumin 3.9 g/dL (3.5-5.0); Albumin Globulin Ratio 1.4 (1.0-2.8); Alkaline Phosphatase 72 U/L (38-126); Aspartate Aminotransferase 21 IU/L (17-59); BUN Creatinine Ratio 24.5 (6-22); Bilirubin Total 0.3 mg/dL (0.2-1.3); Blood Urea Nitrogen 25 mg/dL (9-20); Calcium 9.4 mg/dL (8.4-10.2); Carbon Dioxide 23 mmol/L (22-32); Chloride 103 mmol/L (98-107); Estimated Glomerular Filt Rate > 60 mL/min (>60); Globulin 2.8 g/dL (1.7-4.1); Glucose 201 mg/dL (80-110); HEMOLYSIS < 15 (0-50); Potassium 5.1 mmol/L (3.4-5.1); Sodium 135 mmol/L (137-145); Total Protein 6.7 g/dL (6.3-8.2)
[2023-12-06 22:03] LABS: Hemoglobin A1C% w Est Avg Glu 7.3 % (4.0-6.0)
== END ==
PROVIDERS: Family Provider Family Medicine; PCP Family Medicine; Referring Provider Family Medicine; Visit Provider Family Medicine
DX: E11.9 Type 2 diabetes mellitus without complications (principal); Z79.4 Long term (current) use of insulin
CPT/HCPCS: 36415; 80053; 83036

== ENCOUNTER → 2024-02-01 14:19 | Outpatient (CLI) | payer MEDICARE, SELFPAY ==
[2023-08-03 11:07] VITALS: BMI 25.1
[2024-02-01 15:36] LABS: Hemoglobin A1C% w Est Avg Glu 7.5 % (4.0-6.0)
[2024-02-01 15:46] LABS: Alanine Aminotransferase 16 IU/L (<50); Albumin 4.3 g/dL (3.5-5.0); Albumin Globulin Ratio 1.7 (1.0-2.8); Alkaline Phosphatase 71 U/L (38-126); Aspartate Aminotransferase 19 IU/L (17-59); BUN Creatinine Ratio 24.3 (6-22); Bilirubin Total 0.4 mg/dL (0.2-1.3); Blood Urea Nitrogen 26 mg/dL (9-20); Calcium 9.5 mg/dL (8.4-10.2); Carbon Dioxide 23 mmol/L (22-32); Chloride 104 mmol/L (98-107); Estimated Glomerular Filt Rate > 60 mL/min (>60); Globulin 2.6 g/dL (1.7-4.1); Glucose 241 mg/dL (80-110); HEMOLYSIS < 15 (0-50); Potassium 4.9 mmol/L (3.4-5.1); Sodium 136 mmol/L (137-145); Total Protein 6.9 g/dL (6.3-8.2)
== END ==
PROVIDERS: Family Provider Family Medicine; PCP Family Medicine; Referring Provider Family Medicine; Visit Provider Family Medicine
DX: E11.9 Type 2 diabetes mellitus without complications (principal); Z79.4 Long term (current) use of insulin; E03.9 Hypothyroidism, unspecified
CPT/HCPCS: 36415; 80053; 83036

== ENCOUNTER → 2024-02-08 15:03 | Outpatient (CLI) | payer MEDICARE, SELFPAY ==
[2023-08-03 11:07] VITALS: BMI 25.1
--- NOTE | 2024-02-08 15:06 | DI.RAD.S_ITS ---
PROCEDURE: XR SHOULDER LT MIN 2V INDICATIONS: bilateral shoulder pain TECHNIQUE: 3 views of the shoulder were acquired. COMPARISON: [facility], CR, XR SHOULDER RT MIN 2V, 02/08/2024, 14:29. FINDINGS: No acute fracture or dislocation. Severe left glenohumeral osteoarthritis with a curvilinear osteophyte along the inferior-medial humeral head margin, and subchondral cyst formation at the glenoid body. Reduced acromiohumeral interval, which can be seen with rotator cuff pathology. Enthesopathy along the humeral head greater tuberosity. Mild acromioclavicular osteoarthritis. Chronic-appearing midclavicular fracture and left 3rd lateral rib fracture with callus formation. Visualized left hemithorax within normal limits. IMPRESSION: 1. Severe left glenohumeral osteoarthritis. 2. Chronic, healed left clavicular midshaft and left 3rd lateral rib fractures. Dictated by: Rene Bennett M.D. on 02/08/2024 at 16:30 Approved by: Rene Bennett M.D. on 02/08/2024 at 16:33
--- NOTE | 2024-02-08 15:06 | DI.RAD.S_ITS ---
PROCEDURE: XR SHOULDER RT MIN 2V INDICATIONS: bilateral shoulder pain TECHNIQUE: 3 views of the shoulder were acquired. COMPARISON: [facility], CR, XR SHOULDER LT MIN 2V, 02/08/2024, 14:32. FINDINGS: No acute fracture or dislocation. Severe right glenohumeral osteoarthritis with a curvilinear osteophyte along the inferior-medial humeral head margin. Mild acromioclavicular osteoarthritis. The visualized right hemithorax is within normal limits. Reduced acromiohumeral interval, which can be seen with underlying rotator cuff pathology. IMPRESSION: Severe right glenohumeral osteoarthritis. Dictated by: Rene Bennett M.D. on 02/08/2024 at 16:28 Approved by: Rene Bennett M.D. on 02/08/2024 at 16:30
== END ==
LOC: RAD 15:05
PROVIDERS: Family Provider Family Medicine; PCP Family Medicine; Referring Provider Family Medicine; Visit Provider Family Medicine
DX: M19.011 Primary osteoarthritis, right shoulder (principal); M19.012 Primary osteoarthritis, left shoulder; M25.511 Pain in right shoulder; M25.512 Pain in left shoulder; Z87.81 Personal history of (healed) traumatic fracture
CPT/HCPCS: 73030

== ENCOUNTER → 2024-05-06 15:35 | Outpatient (CLI) | payer MEDICARE, SELFPAY ==
[2023-08-03 11:07] VITALS: BMI 25.1
[2024-05-06 16:06] LABS: Add Manual Diff / Slide Review NO; Basophils Absolute Auto 100 /uL (0-100); Eosinophils Absolute Auto 300 /uL (0-450); Eosinophils Percent Auto 3.7 % (2-4); Hematocrit 41.7 % (41-53); Hemoglobin 13.9 g/dL (13.5-17.5); Lymphocytes Absolute Auto 2400 /uL (1100-4500); Lymphocytes Percent Auto 29.4 % (25-40); Mean Corpuscular HGB Conc 33.3 % (30-36); Mean Corpuscular Hemoglobin 28.2 PG (26-34); Mean Corpuscular Volume 84.8 fL (80-100); Monocytes Absolute Auto 600 /uL (0-900); Monocytes Percent Auto 7.2 % (3-14); Neutrophils Absolute Auto 4700 /uL (1500-7000); Neutrophils Percent Auto 58.7 % (50-75); Platelet Count 322 X10^3/uL (150-400); Red Blood Cell Count 4.92 X10^6/uL (4.5-5.9); Red Cell Distribution Width 17.1 % (11.6-14.8); White Blood Cell Count 8.1 X10^3/uL (4.5-11.0)
[2024-05-06 16:13] LABS: Hemoglobin A1C% w Est Avg Glu 7.1 % (4.0-6.0)
[2024-05-06 16:28] LABS: Alanine Aminotransferase 20 IU/L (<50); Albumin 4.2 g/dL (3.5-5.0); Albumin Globulin Ratio 1.4 (1.0-2.8); Alkaline Phosphatase 68 U/L (38-126); Aspartate Aminotransferase 25 IU/L (17-59); BUN Creatinine Ratio 22.6 (6-22); Bilirubin Total 0.3 mg/dL (0.2-1.3); Blood Urea Nitrogen 21 mg/dL (9-20); Calcium 9.2 mg/dL (8.4-10.2); Carbon Dioxide 27 mmol/L (22-32); Chloride 104 mmol/L (98-107); Estimated Glomerular Filt Rate > 60 mL/min (>60); Globulin 2.9 g/dL (1.7-4.1); Glucose 168 mg/dL (80-110); HEMOLYSIS < 15 (0-50); Potassium 4.6 mmol/L (3.4-5.1); Sodium 135 mmol/L (137-145); Total Protein 7.1 g/dL (6.3-8.2)
[2024-05-06 16:39] LABS: Creatinine Urine Random 98.21 mg/dL
[2024-05-06 16:46] LABS: Microalbumin Urine Random 3.9 mg/dL (0-1.6)
[2024-05-06 16:57] LABS: TSH w/ Reflex to FT4 0.68 uIU/mL (0.47-4.68)
[2024-05-06 17:21] LABS: Prostate Specific Antigen Scrn < 0.064 ng/mL (0.1-4.0)
== END ==
PROVIDERS: Family Provider Family Medicine; PCP Family Medicine; Referring Provider Family Medicine; Visit Provider Family Medicine
DX: I10 Essential (primary) hypertension (principal); E11.9 Type 2 diabetes mellitus without complications; Z12.5 Encounter for screening for malignant neoplasm of prostate; C61 Malignant neoplasm of prostate; E03.9 Hypothyroidism, unspecified
CPT/HCPCS: 36415; 80053; 82043; 82570; 83036; 84443; 85025; G0103

== ENCOUNTER → 2024-07-30 12:08 | Outpatient (CLI) | payer MEDICARE, SELFPAY ==
[2023-08-03 11:07] VITALS: BMI 25.1
[2024-07-30 13:37] LABS: Alanine Aminotransferase 20 IU/L (<50); Albumin 4.2 g/dL (3.5-5.0); Albumin Globulin Ratio 1.6 (1.0-2.8); Alkaline Phosphatase 60 U/L (38-126); Aspartate Aminotransferase 26 IU/L (17-59); BUN Creatinine Ratio 21.6 (6-22); Bilirubin Total 0.6 mg/dL (0.2-1.3); Blood Urea Nitrogen 19 mg/dL (9-20); Calcium 9.5 mg/dL (8.4-10.2); Carbon Dioxide 28 mmol/L (22-32); Chloride 102 mmol/L (98-107); Cholesterol 143 mg/dL (140-199); Estimated Glomerular Filt Rate > 60 mL/min (>60); Globulin 2.7 g/dL (1.7-4.1); Glucose 106 mg/dL (80-110); HDL Cholesterol 56 mg/dL (40-60); HEMOLYSIS < 15 (0-50); Hemoglobin A1C% w Est Avg Glu 6.8 % (4.0-6.0); LDL Cholesterol Calculated 65 mg/dL (<100); Potassium 4.8 mmol/L (3.4-5.1); Sodium 137 mmol/L (137-145); Total Protein 6.9 g/dL (6.3-8.2); Triglycerides 110 mg/dL (35-150)
== END ==
PROVIDERS: Family Provider Family Medicine; PCP Family Medicine; Referring Provider Family Medicine; Visit Provider Family Medicine
DX: E11.9 Type 2 diabetes mellitus without complications (principal); E03.9 Hypothyroidism, unspecified; I10 Essential (primary) hypertension; E78.5 Hyperlipidemia, unspecified; C61 Malignant neoplasm of prostate
CPT/HCPCS: 36415; 80053; 80061; 83036

== ENCOUNTER → 2024-10-30 06:59 | Outpatient (CLI) | payer MEDICARE, SELFPAY ==
[2023-08-03 11:07] VITALS: BMI 25.1
[2024-10-30 08:27] LABS: Hemoglobin A1C% w Est Avg Glu 7.0 % (4.0-6.0)
[2024-10-30 08:30] LABS: Alanine Aminotransferase 20 IU/L (<50); Albumin 4.2 g/dL (3.5-5.0); Albumin Globulin Ratio 1.5 (1.0-2.8); Alkaline Phosphatase 58 U/L (38-126); Blood Urea Nitrogen 20 mg/dL (9-20); Calcium 9.3 mg/dL (8.4-10.2); Carbon Dioxide 26 mmol/L (22-32); Chloride 104 mmol/L (98-107); Estimated Glomerular Filt Rate > 60 mL/min (>60); Globulin 2.8 g/dL (1.7-4.1); Glucose 114 mg/dL (70-99); HEMOLYSIS < 15 (0-50); Potassium 4.6 mmol/L (3.4-5.1); Sodium 138 mmol/L (137-145); Total Protein 7.0 g/dL (6.3-8.2)
== END ==
PROVIDERS: PCP Family Medicine; Referring Provider Family Medicine; Visit Provider Family Medicine
DX: I10 Essential (primary) hypertension (principal); E11.9 Type 2 diabetes mellitus without complications
CPT/HCPCS: 36415; 80053; 83036

== ENCOUNTER → 2024-12-31 12:45 | Outpatient (CLI) | payer MEDICARE, SELFPAY ==
[2023-08-03 11:07] VITALS: BMI 25.1
[2024-12-31 13:29] LABS: Hemoglobin A1C% w Est Avg Glu 6.9 % (4.0-6.0)
[2024-12-31 13:41] LABS: Alanine Aminotransferase 19 IU/L (<50); Albumin 4.2 g/dL (3.5-5.0); Albumin Globulin Ratio 1.4 (1.0-2.8); Alkaline Phosphatase 59 U/L (38-126); Blood Urea Nitrogen 22 mg/dL (9-20); Calcium 9.4 mg/dL (8.4-10.2); Carbon Dioxide 24 mmol/L (22-32); Chloride 103 mmol/L (98-107); Estimated Glomerular Filt Rate > 60 mL/min (>60); Globulin 2.9 g/dL (1.7-4.1); Glucose 129 mg/dL (70-99); HEMOLYSIS < 15 (0-50); Potassium 4.7 mmol/L (3.4-5.1); Sodium 136 mmol/L (137-145); Total Protein 7.1 g/dL (6.3-8.2)
[2024-12-31 15:04] LABS: Microalbumi Creatinin Ratio Ur 65.0 ug/mg CR (<30)
== END ==
PROVIDERS: PCP Family Medicine; Referring Provider Family Medicine; Visit Provider Family Medicine
DX: E11.9 Type 2 diabetes mellitus without complications (principal); E78.2 Mixed hyperlipidemia; E03.9 Hypothyroidism, unspecified; Z79.4 Long term (current) use of insulin
CPT/HCPCS: 36415; 80053; 82043; 82570; 83036

== ENCOUNTER → 2025-03-25 12:57 | Outpatient (CLI) | payer MEDICARE, SELFPAY ==
[2023-08-03 11:07] VITALS: BMI 25.1
[2025-03-25 13:28] LABS: Hemoglobin A1C% w Est Avg Glu 7.0 % (4.0-6.0)
[2025-03-25 13:32] LABS: Alanine Aminotransferase 21 IU/L (<50); Albumin 4.3 g/dL (3.5-5.0); Albumin Globulin Ratio 1.5 (1.0-2.8); Alkaline Phosphatase 54 U/L (38-126); Blood Urea Nitrogen 23 mg/dL (9-20); Calcium 9.4 mg/dL (8.4-10.2); Carbon Dioxide 25 mmol/L (22-32); Chloride 104 mmol/L (98-107); Estimated Glomerular Filt Rate > 60 mL/min (>60); Globulin 2.9 g/dL (1.7-4.1); Glucose 113 mg/dL (70-99); HEMOLYSIS < 15 (0-50); Potassium 4.5 mmol/L (3.4-5.1); Sodium 138 mmol/L (137-145); Total Protein 7.2 g/dL (6.3-8.2)
[2025-03-26 17:04] LABS: Microalbumi Creatinin Ratio Ur 50.0 ug/mg CR (<30)
== END ==
PROVIDERS: PCP Family Medicine; Referring Provider Family Medicine; Visit Provider Family Medicine
DX: E11.9 Type 2 diabetes mellitus without complications (principal); E03.9 Hypothyroidism, unspecified; E78.2 Mixed hyperlipidemia; I10 Essential (primary) hypertension; R80.9 Proteinuria, unspecified; Z79.4 Long term (current) use of insulin
CPT/HCPCS: 36415; 80053; 82043; 82570; 83036